=== PATIENT | female | born 1940 | race Caucasian/White ===

== ENCOUNTER 2016-10-19 09:56 | Inpatient (IN) | payer MEDICARE, MEDICAID ==
[2016-10-19] VITALS (12 sets, daily range): BP systolic 62–147; BP diastolic 28–79; PULSE 48–111; RESP 10–18; O2SAT 94–100
[~2016-10-19] VITALS: Ht 152.4 cm; Wt 67.2 kg
[~2016-10-19 09:56] MED LIST: ACET-171 PO; ALBU8.5H2 IH; ANTI1CAP2 PO; ASPI-973 PO; ATOR40TA69 PO; BACL10TA PO; BECL8.7A5 INH; CALC-243 PO; CITA10TA9 PO; CLOP75TA28 PO; CYAN500 SL; DIAZ2TAB2 PO; DOCU-41 PO; FLUT16SP NS; IMI100 PO; IPRA3AMP INH; LEVO100T6 PO; METO25TA99 PO; PRIM50TA PO; TRAZ-115 PO; VARE1TAB22 PO; [UNRECOGNIZED DRUG - CODE] PO
--- NOTE | 2016-10-19 10:01 | ED.REPORT ---
HPI-Neurologic Deficit Date of Service Oct 19, 2016 ED Provider: Baldomero Marquis DO A 76 year old female with a previous diagnosis of posterior reversible encephalopathy syndrome and Parkinson's disease presents to ED via EMS with altered mental status, last known normal yesterday. Caregiver reports that the patient was unable to answer the door for her this morning, and subsequently called EMS. Son reports increased confusion for the past 4-6 weeks. He states that she loses her train of thought more frequently, and has periodic difficulty with word-finding. Associated symptoms include intermittent and perseveration. Patient keeps repeating "my cat" when asked why she is in the ER. History is limited due to patient's mental status. Nursing Notes Stated Complaint: STROKE SYMPTOMS Nursing Notes Reviewed: Yes Allergies: Coded Allergies: Tetanus Vaccines and Toxoid (Unverified Allergy, Unknown, 10/29/15) Updated from uncoded allergies (tetanus horse serum) codeine (Verified Adverse Reaction, Unknown, vomiting, 10/19/16) Scheduled Acetaminophen (Acetaminophen) 500 Mg Tablet 500 MG PO Q6HR Aspirin (Aspirin) 81 Mg Tablet 81 MG PO DAILY Atorvastatin Calcium (Atorvastatin Calcium) 40 Mg Tablet 80 MG PO HS Beclomethasone Dipropionate (Qvar) 8.7 Gm Aer.w.adap 2 PUFF INH BID Calcium Carbonate/Vitamin D3 (Calcium 600 + Vit D Tablet) 1 Each Tablet 1 EACH PO DAILY Citalopram (Citalopram) 10 Mg Tablet 10 MG PO DAILY Citalopram (Citalopram) 20 Mg Tablet 20 MG PO DAILY Clopidogrel (Clopidogrel) 75 Mg Tablet 75 MG PO DAILY Cyanocobalamin (Vitamin B12) 500 Mcg Tablet 1,000 MCG SL DAILY Levetiracetam (Keppra) 500 Mg Tablet 500 MG PO BID Levothyroxine (Levothyroxine) 100 Mcg Tablet 100 MCG PO DAILY Lisinopril (Lisinopril) 5 Mg Tablet 5 MG PO DAILY Metoprolol Succinate ER (Metoprolol Succinate ER) 25 Mg Tab.er.24h 25 MG PO DAILY Polyethylene Glycol 3350 (Miralax) 17 Gm Powd.pack 8.5 GM PO DAILY Primidone (Primidone) 50 Mg Tablet 50 MG PO HS Theophylline Anhydrous ER (Theophylline Anhydrous ER) 300 Mg Tab.er.12h 300 MG PO BID Topiramate (Topamax) 100 Mg Tablet 200 MG PO BID Trazodone (Trazodone) 50 Mg Tablet 100 MG PO HS Scheduled PRN Albuterol HFA (Proair HFA) 8.5 Gm Hfa.aer.ad 2 PUFFS IH Q4-6H PRN PRN For Wheezing Baclofen (Baclofen) 10 Mg Tablet 10 MG PO TID PRN PRN spa Diazepam (Diazepam) 2 Mg Tablet 2 MG PO BID PRN PRN For Spasm Ipratropium/Albuterol Sulfate (Iprat-Albut 0.5-3(2.5) mg/3 mL Inhalant Soln) 3 Ml Ampul.neb 3 ML INH QID PRN PRN For Shortness of Breath Ondansetron (Ondansetron) 8 Mg Tablet 8 MG PO TID PRN PRN For Nausea Varenicline Tartrate (Chantix) 1 Mg Tablet 1 MG PO BID PRN PRN smoking cessation General Time Seen by Provider: 10:01 Transferred From: skilled nursing Chief Complaint Mental status change Hx Obtained From: EMS Unable to Obtain Hx: Patient condition Arrived By: Ambulance Sudden in Onset?: No Onset Occurred: Just prior to arrival Symptom Duration: 1 - 4 hours Recent Healthcare: Recent doctor visit Risk Factors Risk Notes: Unable to perform NIH Stroke Scale due to extreme patient uncooperation. Past Medical History Past Medical History Notes: Review of past records showed that in October, pt had a neuro consult for posterior reversible encephalopathy which occured in 04/2015 described as severe headache, disorientation, and amnesia. Past Medical History Macular degeneration COPD Posterior reversible encephalopathy syndrome Macular Degeneration Reports: Asthma, Hypertension Reports: Depression, Migraines Past Surgical History Reports: Cholecystectomy Family History non-contributory Smoking History Former Smoker Social History Alcohol Use: 1-3 per day Drug Use: Denies drug use Ambulatory Status Independent Review of Systems Unable to Obtain ROS Mental status Physical Exam Physical Exam Notes: Initial Vital Signs Vital Signs (First) Date Time Temp Pulse Resp B/P Pulse Ox O2 Delivery O2 Flow Rate FiO2 10/19/16 10:05 36.2 81 16 105/68 98 10/19/16 10:49 Nasal Cannula 2 Initial VS: Reviewed General/Constitutional: Awake Alertness: Positive: Confused Head / Eyes: Atraumatic, Normocephalic, PERRL, EOMI (Extra occular movements grossly intact.) Tearful. Respiratory / Chest: Atraumatic, Breath sounds NL, Breath sounds = bilat, No respiratory distress, No rales, No rhonchi, No wheezing Cardiovascular: Heart rate NL, Regular rhythm, Heart sounds NL, No gallop, No murmurs, No rubs Neurologic: No sensory deficits (Full sensation in all extremities and face.) Mental Status: Positive: Confused, Disoriented to place, Disoriented to time Perseveration. Continues to say "my cat, my cat." Symmetric smile. Equal nuclear instructor strength. Equal foot plantar strength. Unable to perform NIH Stroke Scale due to profound patient uncooperation. ENT: Atraumatic, Airway patent, Mucous membranes moist Neck: Atraumatic, Full range of motion Abdomen: Atraumatic, Soft, Non-tender, No guarding, No rebound Back: Atraumatic, Full range of motion, No CVA tenderness Upper Extremity / MS: Atraumatic, Full range of motion, Neurologic intact Lower Extremity / Pelvis / MS: Atraumatic, Full range of motion, Neurologic intact Skin: Atraumatic, Color NL, No rash, Warm, Dry Interpretation & Diagnostics Lab Results Interpretation Result Diagram: 10/19/16 1012 10/19/16 1012 Test 10/19/16 10:12 10/19/16 10:20 10/19/16 11:45 White Blood Count 10.2th/mm3 (3.8-10.1) Red Blood Count 3.96mil/mm3 (3.90-5.20) Hemoglobin 12.0g/dL (12.0-15.6) Hematocrit 38.7% (35.0-46.0) Mean Corpuscular Volume 97.7fL (81-100) Mean Corpuscular Hemoglobin 30.3pg (27.0-35.0) Mean Corpuscular Hemoglobin Concent 31.0% (32.0-37.0) Red Cell Distribution Width 14.8% (12.3-15.4) Platelet Count 321bil/L (150-400) Neutrophils (%) (Auto) 59.3% (40-74) Lymphocytes (%) (Auto) 25.9% (14-46) Monocytes (%) (Auto) 11.5% (4-12) Eosinophils (%) (Auto) 2.8% (0-5) Basophils (%) (Auto) 0.2% (0-3) Prothrombin Time 10.7sec (8.1-12.5) Prothromb Time International Ratio 1.00ratio Activated Partial Thromboplast Time 25.2sec (22.8-33.0) Sodium Level 138mEq/L (134-144) Potassium Level 4.0mEq/L (3.5-5.2) Chloride Level 100mEq/L (97-108) Carbon Dioxide Level 22mmol/L (18-29) Blood Urea Nitrogen 29mg/dL (8-27) Creatinine 2.60mg/dL (0.57-1.00) Estimat Glomerular Filtration Rate 26mL/min (>59) Glucose Level 109mg/dL (60-99) Calcium Level 9.8mg/dL (8.5-10.1) Total Bilirubin 0.2mg/dL (0.0-1.2) Aspartate Amino Transf (AST/SGOT) 12U/L (0-50) Alanine Aminotransferase (ALT/SGPT) 12U/L (0-32) Alkaline Phosphatase 104U/L (25-165) Troponin T 0.010ug/L (0.0-0.011) Total Protein 6.7g/dL (6.4-8.4) Albumin 4.4g/dL (3.4-5.0) Urine Color Straw (YELLOW) Urine Appearance Hazy (CLEAR,HAZY) Urine pH 5.5 (5.0-8.0) Urine Specific [place] 1.010 (1.003-1.035) Urine Protein Negativemg/dL (NEG,TRACE) Urine Glucose (UA) Negativemg/dL (NEGATIVE) Urine Ketones Negativemg/dL (NEGATIVE) Urine Occult Blood Trace (NEGATIVE) Urine Nitrite Negative (NEGATIVE) Urine Bilirubin Negative (NEGATIVE) Urine Urobilinogen Normalmg/dL (NORMAL) Urine Leukocyte Esterase Trace (NEGATIVE) Urine RBC 0-2/hpf (0-2) Urine WBC 0-5/hpf (0-5) Urine Epithelial Cells Occasional/hpf (NONE-MOD) Urine Crystals Oxalic acid crystals (NONE Urine Bacteria Few/hpf (NONE-FEW) Urine Hyaline Casts Occasional/lpf (NONE) Urine Granular Casts None seen (NONE SEEN) Urine Waxy Casts None seen (NONE SEEN) Urine Red Blood Cell Casts None seen (NONE SEEN) Urine White Blood Cell Casts None seen (NONE SEEN) Urine Mucus None seen (None Seen) Urine Trichomonas None seen (NONE SEEN) Urine Yeast None (NONE SEEN) Urinalysis Comment None Urine Culture Reflexed Indicated Urine Opiates Screen Negative Urine Methadone Screen Negative Urine Barbiturates Screen Positive Urine Amphetamines Screen Negative Urine Benzodiazepines Screen Positive Urine Cocaine Metabolite Screen Negative Urine Cannabinoids Screen Negative Lactic Acid Level 0.7mmol/L (0.4-2.0) Ammonia 25ug/dL (18-53) Procalcitonin 0.11ng/mL (0.00-0.08) Thyroid Stimulating Hormone (TSH) 3.050uIU/mL (0.450-4.500) ECG Interpretation ECG Interpretation: Normal, no change. Time: 10:53 Interpreted by: ED physician X-Ray Chest Interpretation Chest Xray Interpretation: IMPRESSION: Normal low volume exam Dictated by: Jack Burrows M.D. on 10/19/2016 at 10:43 Approved by: Jack Burrows M.D. on 10/19/2016 at 10:44 View: Portable, [address] Head Interpretation IMPRESSION: 1. No acute intracranial process. 2. Mild atrophy and chronic microvascular ischemic changes. Dictated by: Aruna Wynn M.D. on 10/19/2016 at 11:12 Approved by: Aruna Wynn M.D. on 10/19/2016 at 11:13 Study: Head CT no contrast Interpretation / Wet Read by: Interpret - Radiologist Re-Eval/Medical Decision Med Decision/Clinical Course This patient presents with altered level of consciousness, she has no focal signs of stroke, she is disoriented and difficult to get to follow commands however she has grossly symmetric cranial nerves, motor, sensory function on exam. NIH stroke scale could not be performed due to the patient's condition. She rapidly developed hypotension bradycardia and decreased level of consciousness in the ER of unclear etiology, she had minimal elevation of her PCO2 which does not seem to explain her symptoms. She was given 2 doses of 0.4 mg of IV naloxone due to the overall change in presentation without significant cognitive improvement. She was then given 5 mg IV glucagon which promptly improve her heart rate and blood pressure in mental status though she did not seem to be at full normal baseline cognitively at that point. Overall infectious etiology seems unlikely however urine and blood cultures as well as broad-spectrum antibiotics, meropenem and Zyvox are initiated. After receiving IV glucagon 5 mg initially she had a prolonged approximately greater than one hour episode of normotension, improved mental status and normal heart rate in the 90s, she began have a slow downtrending once again, 2 mg IV glucagon was given at this time as she had not yet reached for bradycardia or hypotension, subsequently this was unable to reverse her symptoms and she then developed recurrent hypotension with bradycardia, this was treated with 5 mg IV glucagon, subsequently a Norepinephrine drip was initiated. So IV atropine was given at that time for bradycardia after initiation of norepinephrine. Of note on initial presentation when she was more awake and alert there did not seem to be focal signs of trauma she had no focal abdominal pain on exam or any other signs of physical injury. Differential diagnosis at this point is broad I question whether this could be beta parth toxicity, atypical presentation of cerebral ischemia versus polypharmacy versus CO2 retention versus sepsis versus other pathology. She will be admitted to CCU for ongoing monitoring. Source of Hx: Old records Re-Evaluation/Progress #1: Time of Eval: 10:57 Re-Evaluation/Progress Note: Patient is now accompanied by her son. Rechecked patient, explained plan to patient and son. Re-Evaluation/Progress #2: Time of Eval: 11:28 Re-Evaluation/Progress Note: Rechecked and rexamined patient. Pupils pin point and non reactive. Blood pressure is dropping. Re-Evaluation/Progress #3: Time of Eval: 11:37 Re-Evaluation/Progress Note: Rechecked patient. Explained Dr. Bond's agreement to consult on patient condition. Re-Evaluation/Progress #4: Time of Eval: 11:46 Re-Evaluation/Progress Note: Persistent low blood pressure. Re-Evaluation/Progress #5: Time of Eval: 12:17 Re-Evaluation/Progress Note: Patient blood pressure and heart rate improved immediatley with injection of glucagon. Re-Evaluation/Progress #6: Time of Eval: 13:37 Re-Evaluation/Progress Note: Rechecked patient. Heart rate dropped into the 60's. Blood Pressue has gone down. Patient has become more somnolent. Re-Evaluation/Progress #7: Time of Eval: 14:04 Re-Evaluation/Progress Note: Rechecked patient. Patient remains somulent. Heart rate is in the 60's. She is hypotensive. Consultation #1: Referral / Consult Name: Blaine Butler MD Consulted With: Nephrology Call Returned at: 11:33 Stove Cleaner: Agrees with eval, Agrees with plan Note: Dr. Bond will consult on the patient. Consultation #2: Referral / Consult Name: Rad Garcia MD Consulted With: Hospitalist Call Returned at: 12:11 Stove Cleaner: Agrees with eval, Agrees with plan, Accepts admit Counseled Regarding: Diagnosis, Lab results, Need for admission Discharge & Departure Impression: Primary Impression: Altered mental status Altered mental status type: unspecified Qualified Code: R41.82 - Altered mental status, unspecified Additional Impressions: Hypotension Hypotension type: unspecified hypotension type Qualified Code: I95.9 - Hypotension, unspecified Acute kidney injury Disposition: ADMITTED TO HOSPITAL Discharge Condition All VS Reviewed: Yes Condition: Stable Referrals: Callum Conn MD (PCP) Crit Care Except Billable Proc Time Spent: 105-134 minutes Services Performed: Patient management by me, Time spent at bedside, Reviewing test results, Reviewing imaging, Discussing patient care, Documentation in record, Time with fam/surrogate Critical Care Notes: See MDM Scribe Attestation Portions of this note were transcribed by Alber Shanks and Paco Andrade. I, Dr. Maruqis personally performed the history, physical exam and medical decision-making; I reviewed and confirmed the accuracy of the information in the transcribed note. Signed by: Earnest Vega, 10/19/2016 and 1339. Signed by: Earnest Ricci, 10/19/2016 and 1339. copies to: Callum Conn MD, Timyael Rojo Oct 19, 2016 10:01 Alber Shanks Oct 19, 2016 10:07 PACO BOLAND Oct 19, 2016 11:54
[2016-10-19] MEDS ORDERED: 0.9% Sodium Chloride 1,000 ML IV ONE ×3 (10:09→11:45)
[2016-10-19 10:26] LABS: BASOPHILS % (AUTO) 0.2 % (0-3); EOSINOPHILS % (AUTO) 2.8 % (0-5); MONOCYTES % (AUTO) 11.5 % (4-12); Mean Corpuscular Hemoglobin 30.3 pg (27.0-35.0); Mean Corpuscular Volume 97.7 fL (81-100); NEUTROPHILS % (AUTO) 59.3 % (40-74); Platelet Count 321 bil/L (150-400)
[2016-10-19 10:31] LABS: TROPONIN T 0.01 ug/L (0.0-0.011)
[2016-10-19] MEDS ORDERED: TOPI100T32 PO (10:39)
[2016-10-19] MEDS ORDERED: LISI-571 PO (10:39)
[2016-10-19] MEDS ORDERED: POLY17PO6 PO (10:39)
[2016-10-19] MEDS ORDERED: KEP500TA PO (10:39)
[2016-10-19] MEDS ORDERED: ONDA-54 PO (10:39)
[2016-10-19] MEDS ORDERED: CITA20TA11 PO (10:39)
--- NOTE | 2016-10-19 10:46 | DRSVH ---
PROCEDURE: X-RAY CHEST ONE VIEW, PORTABLE ([id number]) INDICATIONS: ALOC TECHNIQUE: One view of the chest was acquired. COMPARISON: 08/20/2016 FINDINGS: Surgical changes and devices: Surgical clips right upper quadrant.. Lungs and pleura: No pleural effusions or pneumothorax. Lungs are clear. Mediastinum: Mediastinal contours appear normal. Heart size is normal. Aortic calcifications. Bones and chest wall: No suspicious bony lesions. Degenerative a.c. joint disease bilaterally. Overl janice soft tissues appear unremarkable. IMPRESSION: Normal low volume exam Dictated by: Jack Burrows M.D. on 10/19/2016 at 10:43 Approved by: Jack Burrows M.D. on 10/19/2016 at 10:44
--- NOTE | 2016-10-19 11:15 | DRSVH ---
PROCEDURE: CT BRAIN WITHOUT CONTRAST ([id number]) INDICATIONS: ALOC, repetitive, expressive aphasia TECHNIQUE: Noncontrast 4.5 mm thick angled axial sections acquired from the foramen magnum to the vertex, with c oronal reformats. COMPARISON: [facility], CT, CT BRAIN WO CON, 05/01/2015, 7:53. FINDINGS: Image quality: Excellent. CSF spaces: Basal cisterns are patent. No extra-axial fluid collections. The ventricles are symmet jv in size and shape. Brain: No intracranial bleeds or masses. There is cerebral volume loss for age, with resultant vent ricular and sulcal prominence. There are periventricular and deep white matter chronic small vessel ischemic changes. There is intracranial internal carotid artery atherosclerosis. Skull and face: Calvarium and visualized facial bones appear intact, without suspicious lesions. Sinuses: Visualized sinuses and mastoids are clear. IMPRESSION: 1. No acute intracranial process. 2. Mild atrophy and chronic microvascular ischemic changes. Dictated by: Aruna Wynn M.D. on 10/19/2016 at 11:12 Approved by: Aruna Wynn M.D. on 10/19/2016 at 11:13
--- NOTE | 2016-10-19 11:19 | ABG ---
DateTimeAnalyzed 11:14:00 -_ pH ____7.203 - 7.350 7.450 pCO2 ___50.9__ -mmHg 35.0 45.0 pO2 108 -mmHg 69.0 116 HCO3- ___19.3__ -mmol/L 22.0 26.0 ABE ___-8.3__ -mmol/L -2.0 2.0 tHb ___11.1__ -g/dL O2Hb ___96.2__ -% COHb ____0.4__ -% MetHb ____1.0__ -% sO2 ___97.6__ -% FIO2 ___31.0__ -% Drawn By jj - Date/Time Notified____ 11:19:00 -_ Liter_Flow ____3.0__ -L/min Oxygen Device 1 __CANNULA - Notified By jj - Notified Whom dr okelley - B 755 -mmHg tO2 ___15.1__ -Vol% Rad test _Positive -
[2016-10-19 11:21] LABS: APPEARANCE,URINE HAZY (CLEAR,HAZY); COLOR,URINE STRAW (YELLOW); OCCULT BLOOD,URINE TRACE (NEGATIVE); PH,URINE 5.5 (5.0-8.0); UROBILINOGEN,URINE NORMAL (NORMAL)
[2016-10-19] MEDS ORDERED: Naloxone 0.4 mg/mL 10 mL Inj IVPUSH PRN (11:30)
[2016-10-19] MEDS ORDERED: Glucagon 1 mg/mL Inj IV ONE ×4 (11:30→13:40)
--- NOTE | 2016-10-19 11:53 | NUR ---
Orders received for swallow evaluation. Discussed with RN. Patient is unable to tolerate swallowing evaluation currently. RN to call if status changes. NIT[employer]ANT OPERATOR to evaluate when appropriate.
[2016-10-19] MEDS: 0.9% Sodium Chloride 1,000 ML IV SCH ×3 (11:56→20:28)
[2016-10-19] MEDS ORDERED: Sodium Chloride LOK Flush 10 mL Syringe IVFLUSH PRN ×2 (12:00)
[2016-10-19] MEDS ORDERED: Meropenem Inj 1,000 MG in IV Premix 1 EACH IV ONE (12:15)
[2016-10-19] MEDS ORDERED: Linezolid Inj 600 MG in IV Premix 1 EACH IV ONE (12:15)
[2016-10-19] MEDS ORDERED: Ondansetron 2 mg/mL 2 mL Inj IVPUSH PRN ×3 (12:20→13:40)
[2016-10-19] MEDS ORDERED: 0.9% Sodium Chloride 1,000 ML IV SCH (12:22)
[2016-10-19] MEDS ORDERED: Alum-Mag Hydrox-Simeth 30 mL Suspension PO PRN ×2 (12:25→13:40)
[2016-10-19] MEDS ORDERED: Polyethylene Glycol (PEG) 17 Gm Powder PO PRN (13:40)
[2016-10-19] MEDS ORDERED: DEXTROSE IV SCH ×2 (13:50)
[2016-10-19] MEDS ORDERED: GLUCAGON IV SCH ×2 (13:50)
[2016-10-19] MEDS: Norepineph 8,000 mCg/250 mL NS 8,000 MCG in IV Premix 1 EACH IV SCH ×2 (14:14→21:00)
[2016-10-19] MEDS ORDERED: Atropine 1 mg/10 mL (Code) Syringe IVPUSH PRN (14:25)
--- NOTE | 2016-10-19 14:45 | NUR ---
Admit/ LOC/BP Pt arrived on floor from ER at 1445. On norepi gtt at 0.55 with MAP in the low 60s. Pt awake to sternal rub but does not hold attention. Able to weakly squeeze hands. Repeating words a lot but nods and shakes head to yes and no questions. IV therapy at bedside to place PICC. Carlin score 11, protocol sent. O2 at 99% on 5L
[2016-10-19 14:48] LABS: Creatine Kinase 73 U/L (21-215)
--- NOTE | 2016-10-19 16:21 | DRSVH ---
PROCEDURE: X-RAY PICC LINE PLACEMENT BY NURSE ([id number]) INDICATIONS: hypotension COMPARISON: None. FINDINGS: PICC was placed by the intravenous therapy team from the left side. Fluoroscopic spot madeline m demonstrates tip of PICC overlies the distal SVC. IMPRESSION: Tip of PICC overlies the distal SVC. Dictated by: Aruna Wynn M.D. on 10/19/2016 at 16:19 Approved by: Aruna Wynn M.D. on 10/19/2016 at 16:19
--- NOTE | 2016-10-19 16:33 | PCM.HPMED ---
Subjective Date of Service Oct 19, 2016 Primary Provider: Admitting Physician: Rad Garcia MD Primary Care Physician: Callum Conn MD Attending Physician: Rad Gacria MD Chief Complaint: Encephalopathy and hypotension. History of Present Illness: Mrs. Crow Is a 76-year-old lady with past medical history significant for 2 prior episodes of reversible encephalopathy with the past year, COPD, depression , polypharmacy, one-year history of seizure disorder and 2 year story of resting tremor and head noemi declining ambulatory ability, hypothyroid, hypertension, and previous PA without PCI, who presents to the [facility] emergency Department via EMS after being found by caregiver in a confused state asking about her cat, with previous normal cognition one day prior. Upon arrival patient was following commands and continue her perseverating about her cat and shortly thereafter became obtunded. Patient's son Félix helped provide history along with previous records to complete past medical history. Patient' s son Félix reports 4-6 weeks of increased perseveration, mild decline in memory and train of thought and word finding. Félix notes recent medication changes but cannot identify which changes were made. 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 After arrival to the ED the patient rapidly developed hypotension bradycardia and decreased level of consciousness in the ER of unclear etiology, she had minimal elevation of her PCO2. She was given 2 doses of 0.4 mg of IV naloxone due to the overall change in presentation without significant cognitive improvement. She was then given 5 mg IV glucagon which promptly improve her heart rate and blood pressure in mental status though she did not seem to be at full normal baseline cognitively at that point. Overall infectious etiology seems unlikely however urine and blood cultures as well as broad-spectrum antibiotics, meropenem and Zyvox are initiated. After receiving IV glucagon 5 mg initially she had a prolonged approximately greater than one hour episode of normotension, improved mental status and normal heart rate in the 90s, she began have a slow downtrending once again, 2 mg IV glucagon was given at this time as she had not yet reached for bradycardia or hypotension, subsequently this was unable to reverse her symptoms and she then developed recurrent hypotension with bradycardia, this was treated with 5 mg IV glucagon, subsequently a Norepinephrine drip was initiated. So IV atropine was given at that time for bradycardia after initiation of norepinephrine. Allergies Coded Allergies: Tetanus Vaccines and Toxoid (Unverified Allergy, Unknown, 10/29/15) Updated from uncoded allergies (tetanus horse serum) codeine (Verified Adverse Reaction, Unknown, vomiting, 10/19/16) Home Medications Not obtainable PMH One-year seizure disorders. One-year of 2 prior events of reversible encephalopathy. 2 years of EPS. Depression. Hypothyroid. Hypertension. COPD. ACS - PA without PCI. Macular degeneration. Migraines. Surgical History Cholecystectomy. Family History Not obtainable, due to mental status Social History Hx Alcohol Use: Yes Alcoholic Drinks Per Day: 1-3 drinks per day, unspecified type. Hx Substance Use: No Hx Tobacco Use: Yes (1ppd for all her life) Smoking Status: Former Smoker Exam Vital Signs Vital Sign - Last Date Time Temp Pulse Resp B/P Pulse Ox O2 Delivery O2 Flow Rate FiO2 10/19/16 14:33 35.9 99 12 131/42 100 Nasal Cannula 2 Exam General: Unresponsive and obtunded and unarousable. HEENT: Normocephalic, atraumatic. External ears without defect. Pupils equal, round, and reactive to light and pinpoint. Positive corneal reflex bilaterally. Anicteric sclerae, moist conjunctivae. Bond macroglossia present , cannot visualize tonsils, with dry mucosa, active snoring present. Neck: Supple with full range of motion. No jugular venous distension. Could not appreciate bruits due to active snoring. No lymphadenopathy or thyromegaly. Cardiovascular: Bradycardic rate and regular rhythm murmurs are not appreciated as well due to loud glottic noises. Pulmonary: Difficult to auscultation due to loud glottic noises. Hypoactive respiratory effort and no use of accessory muscles. Abdomen: Bowel tones present. Soft, obese, nontender, nondistended. No hepatosplenomegaly or masses appreciated. Extremities: No clubbing, cyanosis, edema, or lymphadenopathy appreciated. Ovaries cool to touch upper and lower bilaterally with mild patches of ecchymosis lower extremities. Pulses posterior tibialis 2+ in the right and 1+ on the left lower extremity. Skin: Skin drying cool upper and lower extremities. Normal turgor, and texture ; no rash, ulcers, or subcutaneous nodules appreciated. Mild patches of ecchymosis lower extremity. Neurological: Unresponsive and obtunded and unarousable. No Babinski reflex present. According to notes patient is dependent upon walker for the last 2 years. Psychiatric: Unresponsive and obtunded and unarousable. Lab and Diagnostics Result Diagram: 10/19/16 1012 10/19/16 1012 Assessment & Plan Mrs. Crow Is a 76-year-old lady with past medical history significant for 2 prior episodes of reversible encephalopathy with the past year, COPD, depression , polypharmacy, one-year history of seizure disorder and 2 year story of resting tremor and head noemi declining ambulatory ability, hypothyroid, hypertension, and previous PA without PCI, who presents to the [facility] emergency Department via EMS after being found by caregiver in a confused state asking about her cat, with previous normal cognition one day prior. The patient rapidly developed hypotension bradycardia and decreased level of consciousness in the ER of unclear etiology; minimal elevation of PCO2, 2 doses of 0.4 mg of IV naloxone; 5 mg IV glucagon which promptly improve her heart rate and blood pressure in mental status though she did not seem to be at full normal baseline cognitively at that point. Urine and blood cultures obtained, meropenem , linezolid initiated. After receiving IV glucagon 5 mg initially she had a prolonged approximately greater than one hour episode of normotension, improved mental status and normal heart rate in the 90s, she began have a slow downtrending once again, 2 mg IV glucagon was given at this time as she had not yet reached for bradycardia or hypotension, subsequently this was unable to reverse her symptoms and she then developed recurrent hypotension with bradycardia, this was treated with 5 mg IV glucagon, subsequently a Norepinephrine drip was initiated. So IV atropine was given at that time for bradycardia after initiation of norepinephrine. 1. Encephalopathy, present on admission. Improved. - Differential diagnosis includes polypharmacy, beta parth overdose, seizure disorder, stroke, infectious source, hypothyroid, COPD exacerbation, uremia. - IV glucagon 5 mg given 3 times with resolution only after the first administration. - TSH within normal limits (3.050). - UA negative. - Toxicology showed positive barbiturates and benzodiazepines, investigate current home medications. - CT head wo as above. No acute abnormalities. - MRI head tomorrow. 2. Acute shock, present on admission. Improved. - Differential includes sepsis versus cardiogenic versus neurogenic. - Currently placed on norepinephrine. - Currently on a norepinephrine drip. - 3 L normal saline given wide open with current rate of 300ml per hour. - Meropenem and linezolid initiated in the ED. - Blood cultures pending 2. - Chest x-ray as above. Stable nodule. 3. Acute bradycardia, present on admission. Improved. - Atropine administered. 4. Acute respiratory acidosis, present on admission. Active and improving. - ABG as above. PH 7.203, PCO2 50.9 - Normal respirations 12, tolerating nasal cannula 99% saturations. 5. Acute kidney injury, present admission. Active. - Baseline creatinine 0.6, currently 2.60. BUN 29. - Continue IV fluids. Chronic Conditions: Chronic Hypertension Chronic Hypothyroidism Depression Migraines Seizure disorder Acetaminophen for mild pain when necessary. Bowel regimen Senna and MiraLAX scheduled and PRN. Zofran when necessary for nausea and vomiting. SubQ heparin held for now. SCDs in place. High-risk medications: ICU: Vent settings: none. ABG: as above. I/Os: Lines: Left and right antecubital peripheral IV (10/19). Left PICC (10/19). Drips: NE Disposition: Likely here for > 2 midnights. Dependent upon mental status. Will be discharged to home or SNF undetermined at this time. Acute or chronic? Pain Evaluation: Adequate Pain Control Resuscitation Status: DNR/DNI:Do Not Resuscitate/Intubate Time spent 70 minutes Attending Statement Patient seen and examined with house staff. Agree with all attached documentation. RAQUEL HAYWARD DO Oct 19, 2016 15:44 Rad Garcia MD Oct 27, 2016 07:29
[2016-10-19] MEDS ORDERED: ATOR80TA77 PO (16:34)
[2016-10-19] MEDS ORDERED: LEVE500T3 PO (16:34)
[2016-10-19] MEDS ORDERED: MULT1TAB11 PO (16:34)
--- NOTE | 2016-10-19 17:42 | PCM.CHPMED ---
Subjective Date of Service: Oct 19, 2016 Primary Physician: Admitting Physician: Rad Garcia MD Primary Care Physician: Callum Conn MD Attending Physician: Rad Garcia MD Chief Complaint: Chief Complaint: Altered mental status History of Present Illness: This is a 76-year-old lady with multiple past medical history including seizure disorder, COPD, previous [place], hypothyroidism, hypertension, migraines, depression , macular degeneration who presented to the hospital due to altered mental status. Patient was recently admitted in July 2016 due to acute encephalopathy secondary to posterior reversible encephalopathy syndrome. Her son is at the bedside reported that she lives alone at her apartment. She has caregiver who comes 3-4 times a week to check on her. This morning, patient was found to be confused and obtunded. She then was brought to the ED by EMS. Upon arrival, she was found to be hypotensive and bradycardia. She received IV Narcan and IV glucagon. 2L NS IV bolus was given. Subsequently, her BP and HR have improved. During my visit, her BP was in 110s systolic with HR of 90. Her son does not know if she overdosed herself unintentionally. He does not know whether she took any NSAIDs. Her mentation has declined over the past 6 weeks. Her initial w/u showed Na 138, K 4.0, Cl 100 CO2 22, BUN 29/Cr 2.6. Her baseline serum cr was 0.6. UA showed oxalic acid crystal. Dela Cruz catheter was placed in ER with good UOP. Her last visit at urgent care was on 10/13 due to skin lesion from cat scratch. The wound was cleaned and antibiotics ointment was applied. Echo in Jul 2016: The left ventricle is normal in size. Left ventricular systolic function is normal without focal wall motion abnormalities. The ejection fraction is estimated to be 60-65%. Prior regional wall motion abnormalities have resolved. The right ventricle is normal in size and function. Pulmonary artery pressures cannot be estimated because of the lack of a measurable TR jet velocity. Both atria are normal in size. There is no significant valvular heart disease. The aortic root is normal size. There is no obvious cardiac source of embolus noted on this transthoracic echocardiogram. Follow-up with a LUIS is suggested if cardiac source is still suspected. PMH Posterior reversible encephalopathy syndrome x2, last episode in Jul 2016. COPD HTN Migraine headache Depression Macular degeneration Tobacco abuse Surgical History Cholecystectomy Family History Patient is unable to recall family history of HTN, CVD, Cancer Social History Hx Alcohol Use: Yes Hx Substance Use: No Hx Tobacco Use: Yes (1ppd x 50 PY) Smoking Status: Former Smoker Review of Systems: [facility] Allergies: Coded Allergies: Tetanus Vaccines and Toxoid (Unverified Allergy, Unknown, 10/29/15) Updated from uncoded allergies (tetanus horse serum) codeine (Verified Adverse Reaction, Unknown, vomiting, 10/19/16) Social History Hx Alcohol Use: YesAlcoholic Drinks Per Day: 1-3 drinks per day, unspecified type. Hx Substance Use: NoHx Tobacco Use: Yes (1ppd for all her life) Smoking Status: Former Smoker Exam Vital Signs Vital Sign - Last Date Time Temp Pulse Resp B/P Pulse Ox O2 Delivery O2 Flow Rate FiO2 10/19/16 14:45 36.4 68 12 147/51 99 Nasal Cannula 3.00 General: Mild Distress, Other (obtunded, responsive to painful stimuli) Head: Normal Eyes: PERRLA, EOMI, Scleral Anicteric Mouth: Lips, Mucous Membr Moist/[place] Neck: No Thyromegaly Chest & Lungs: Chest Wall Normal, Clear to auscultation & percussion, Diminished breath sounds Cardiovascular: Regular Rate/Rhythm, Normal S1, Normal S2, Murmur (systolic ) Abdomen: Non-tender, Non-distended, No hepatosplenomegaly Genitourinary: Dela Cruz Present Extremities: No cyanosis/clubbing/edma bilat Lab and Diagnostics Result Diagram: 10/19/16 1012 10/19/16 1012 Assessment & Plan Assessment 1. JACKIE - baseline serum creatinine 0.6 - initial serum creatinine 2.6. - She takes lisinopril. Per record, med was started in Jul 2016. - DDx: Prerenal- decrease renal blood flow during hypotensive and bradycardic episodes. JACKIE after lisinopril initiated in Jul 2016, need to r/o RADHA. Renal- ischemic ATN from prolonger hypotension vs toxic ATN. AIN and GN - less likely Postrenal - good urine output after dela cruz cath placed, will order renal US. 2. Mixed respiratory acidosis and AG metabolic acidosis - will check ETOH level, salicylate, ethylene glycol (oxalic acid crystal in urine, AMS). - normal lactate level. 3. Acute encephalopathy. 4. Hypotension - septic w/u done. 5. Bradycardia, suspected beta-parth overdose. s/p IV glucagon. 6. h/o PRES x 2. 7. Seizure disorder. 8. h/o COPD, tobacco abuse. Plan: continue supportive treatment, no urgent HD indicated. Continue NS 150 ml/hr. Continue vasopressors to keep MAP > 65 mmHg. Renal US with doppler. check ETOH level, salicylate, ethylene glycol. Avoid nephrotoxin and adjust meds per GFR. Thank you for allowing me to participate in the care of your patient. Problems: Pain Evaluation: Adequate Pain Control Resuscitation Status: DNR/DNI:Do Not Resuscitate/Intubate Blaine Butler MD Oct 19, 2016 17:39
--- NOTE | 2016-10-19 18:17 | DRSVH ---
[facility] [address] [place] [address] Echocardiogram Report Name: TERI ORTIZ LStudy Date : 10/19/2016 Height: 60 in Hospital Exam Location: [facility] Weight: 163 lb Gender: Female BSA: 1.7 m2 : 1940 Age: 76 yrs BP: 140/74 mmHg Reason For Study: Hypotension Ordering Physician: Performed By: Milli Moore Referring Physician: Heath Hernandez Interpretation Summary The left ventricle is normal in size, wall thickness, and systolic function without any focal wall motion abnormalities. The ejection fraction is estimated to be 70-75%. Assessment of diastolic parameters indicates normal left ventricular diastolic function and normal filling pressures. The right ventricle is normal in size, thickness and function. The right ventricular systolic pressure is estimated at 29 mmHg assuming a right atrial pressure of 3 mm Hg. There is mild aortic stenosis. The peak aortic velocity is 2.8 m/sec. The calculated aortic valve area is 1.6 cm2. No other echocardiographic abnormalities seen. Compared to the prior echo report on 08/16/2016, there is no significant change. Procedure: A two-dimensional transthoracic echocardiogram with color flow and Doppler was performed. The study quality was technically good. Comparison is made with the echocardiogram of 08-16-16. The patient was in normal sinus rhythm during the exam. Left Ventricle: The left ventricle is normal in size, wall thickness, and systolic function without any focal wall motion abnormalities. The ejection fraction is estimated to be 70-75%. There are no focal wall motion abnormalities. Assessment of diastolic parameters indicates normal left ventricular diastolic function and normal filling pressures. Right Ventricle: The right ventricle is normal in size, thickness and function. Atria: The left atrium is mildly dilated. Right atrial size is normal. The interatrial septum is intact with no evidence for an atrial septal defect. Mitral Valve: The mitral valve leaflets appear mildly thickened, but open well. There is mild to moderate mitral annular calcification. There is no mitral regurgitation noted. Aortic Valve: There is mild aortic valve sclerosis. The aortic valve is mildly calcified. The calculated aortic valve area is 1.6 cm2. The aortic valve area indexed to the BSA is 0.95 . The peak aortic velocity is 2.8 m/sec. The peak aortic velocity on the previous exam was 2.6 m/sec. The aortic valve mean gradient is 15 mmHg. There is mild aortic stenosis. No aortic regurgitation is present. Tricuspid Valve: The tricuspid valve is normal in structure and function. There is a trace or physiologic amount of tricuspid regurgitation. The right ventricular systolic pressure is estimated at 29 mmHg assuming a right atrial pressure of 3 mm Hg. Pulmonic Valve: The pulmonic valve is not well visualized. There is no pulmonic valvular regurgitation. Great Vessels: The aortic root is normal size. The dimensions of the ascending aorta are normal. The IVC is of normal diameter and collapses greater than 50% with a sniff. This suggests a low right atrial pressure of 3 mm Hg. Pericardium/ Pleura There is no pericardial effusion. There is no pleural effusion. MMode/2D Measurements & Calculations LVIDd: 4.5 cm LA dimension: 3.3 cm RA long axis LVOT diam LVIDs: 2.8 cm FS: 37.4 % LA A2 area: 29.0 cm RA area AoV Opening IVSd: 0.89 cm LA A4 area: 19.3 cm LVPWd: 0.78 cm LA length (vol): 5.2 cm: 16.5 cm Ao root diam LA vol: 91.3 ml RA vol LA vol index : 46.0 ml Aortic Jxn RA : 26.9 mm/ asc Aorta IVC diam: 2.0 cm RVDd major Diam: 3.2 cm : 6.5 cm LV carmona. diameter/BSA LV sys. diameter/BSA RVD1 (basal) RVD2 (mid) (cm/m^2): 2.6 (cm/m^2): 1.6 : 2.9 cm Doppler Measurements & Calculations Ao V2 max MV E max dieter MV E/A: 1.1 TR max dieter : 275.2 cm/sec : 127.9 cm/sec Med Peak E' Dieter : 253.6 cm/sec Ao max PG MV A max dieter TR max PG : 30.3 mmHg : 111.7 cm/sec E/E' med: 14.0 : 25.7 mmHg Ao mean PG MV P1/2t: 61.3 msec Lat Peak E' Dieter PA V2 max : 14.8 mmHg : 107.5 cm/sec LVOT Max Dieter E/E' lat: 10.7 PA mean PG : 98.2 cm/sec E/e' average: 12.3 ARCHANA(I,D): 1.6 cm MV A dur: 0.16 sec PA Accel Time sev ratio : 0.08 sec MV dec time MV P1/2t max dieter Ao V2 mean LV V1 max PG : 0.21 sec : 174.3 cm/sec Ao V2 VTI: 57.9 cm LV V1 VTI MVA(P1/2t): 3.6 cm2 : 25.9 cm ARCHANA(V,D): 1.3 cm2 PA V2 mean ARCHANA indexed to BSA : 66.6 cm/sec (cm^2/m^2): 0.95 Reading Physician:06:17 PM
[2016-10-19 19:23] LABS: TROPONIN T < 0.010 ug/L (0.0-0.011)
[2016-10-20] VITALS (8 sets, daily range): BP systolic 93–161; BP diastolic 53–74; PULSE 99–121; RESP 13–28; O2SAT 94–100
--- NOTE | 2016-10-20 00:21 | ABG ---
DateTimeAnalyzed 00:14:00 -_ pH ____7.067 - 7.350 7.450 pCO2 ___53.2__ -mmHg 35.0 45.0 pO2 ___96.2__ -mmHg 69.0 116 HCO3- ___14.6__ -mmol/L 22.0 26.0 ABE __-15.5__ -mmol/L -2.0 2.0 tHb ___12.2__ -g/dL O2Hb ___95.1__ -% COHb ____0.3__ -% MetHb ____1.0__ -% sO2 ___96.4__ -% FIO2 ___40.0__ -% Drawn By blf - Date/Time Notified____ 00:20:00 -_ Spontaneous_RR ___40.0__ -b/min Liter_Flow ____6.0__ -L/min Oxygen Device 1 __CANNULA - Notified By blf - Notified Whom ___Dr. Del la Houssaye -_ B 761 -mmHg tO2 ___16.4__ -Vol% Rad test N/A -
[2016-10-20] MEDS ORDERED: Furosemide 10 mg/mL 2 mL Inj IVPUSH ONE (00:30)
--- NOTE | 2016-10-20 01:55 | NUR ---
Hemodynamics, Respiratory, Neuro VS as noted. After repositioning 1900 blood pressure upo to 140s/70s. Weaned Levophed gtt to keep map >65 From 0.55mcg to currently 0.2mcg/kg/min. Sats on 6l/nasal canula high 90s without desats. Cough productive for moderate amounts clear/white secretions increasing through the evening requiring frequent oral suctioning. NS decreased from 200/h to off. 0000 Unable to clear secretions requiring NT suctioning for large amounts clear secretions. Dr Marshall notified. Lasix 20mg iv given with 500ml clear uop in the first hour post. Sats Remain mid 90s on 6l/nc. 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 Repeats responses multiple times.
[2016-10-20] MEDS: Norepineph 8,000 mCg/250 mL NS 8,000 MCG in IV Premix 1 EACH IV SCH (02:47)
--- NOTE | 2016-10-20 05:04 | ABG ---
DateTimeAnalyzed 04:59:00 -_ pH ____7.125 - pCO2 ___50.1__ -mmHg pO2 ___51.5__ -mmHg HCO3- ___15.8__ -mmol/L ABE __-13.1__ -mmol/L tHb ___11.9__ -g/dL O2Hb ___84.2__ -% COHb ____0.6__ -% MetHb ____1.2__ -% sO2 ___85.7__ -% FIO2 ___40.0__ -% Drawn By RN - Date/Time Notified____ 05:04:00 -_ Spontaneous_RR ___26.0__ -b/min Liter_Flow ____6.0__ -L/min Oxygen Device 1 __CANNULA - Notified By BLF - Notified Whom ___DR. DE LA HOUSSAYE -__ B 761 -mmHg tO2 ___14.1__ -Vol% Rad test N/A -
[2016-10-20 05:15] LABS: BASOPHILS % (AUTO) 0.1 % (0-3); EOSINOPHILS % (AUTO) 0.4 % (0-5); MONOCYTES % (AUTO) 11.2 % (4-12); Mean Corpuscular Hemoglobin 30.3 pg (27.0-35.0); NEUTROPHILS % (AUTO) 75.9 % (40-74); Platelet Count 322 bil/L (150-400)
--- NOTE | 2016-10-20 07:41 | PCM.PNMED ---
Subjective Date of Service Oct 20, 2016 Subjective Mrs. Crow Is a 76-year-old lady with past medical history significant for 2 prior episodes of reversible encephalopathy with the past year, COPD, depression , polypharmacy, one-year history of seizure disorder and 2 year story of resting tremor and head noemi declining ambulatory ability, hypothyroid, hypertension, and previous PA without PCI, who presents to the [facility] emergency Department via EMS after being found by caregiver in a confused state asking about her cat, with previous normal cognition one day prior. Upon arrival patient was following commands and continue her perseverating about her cat and shortly thereafter became obtunded. Patient's son Félix helped provide history along with previous records to complete past medical history. Patient' s son Félix reports 4-6 weeks of increased perseveration, mild decline in memory and train of thought and word finding. Félix notes recent medication changes but cannot identify which changes were made. 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 After arrival to the ED the patient rapidly developed hypotension bradycardia and decreased level of consciousness in the ER of unclear etiology, she had minimal elevation of her PCO2. She was given 2 doses of 0.4 mg of IV naloxone due to the overall change in presentation without significant cognitive improvement. She was then given 5 mg IV glucagon which promptly improve her heart rate and blood pressure in mental status though she did not seem to be at full normal baseline cognitively at that point. Overall infectious etiology seems unlikely however urine and blood cultures as well as broad-spectrum antibiotics, meropenem and Zyvox are initiated. After receiving IV glucagon 5 mg initially she had a prolonged approximately greater than one hour episode of normotension, improved mental status and normal heart rate in the 90s, she began have a slow downtrending once again, 2 mg IV glucagon was given at this time as she had not yet reached for bradycardia or hypotension, subsequently this was unable to reverse her symptoms and she then developed recurrent hypotension with bradycardia, this was treated with 5 mg IV glucagon, subsequently a Norepinephrine drip was initiated. So IV atropine was given at that time for bradycardia after initiation of norepinephrine. Overnight: Events:No acute overnight events. Patient awoke and was confused and conversational intermittently. Today: Patient remains encephalopathic, responds to well to nursing. Continues to moan and reach for her head. No meaningful conversation. Exam Vital Signs Vital Sign - Last Date Time Temp Pulse Resp B/P Pulse Ox O2 Delivery O2 Flow Rate FiO2 10/20/16 00:00 Supplement Oxygen 10/20/16 00:00 37.2 118 25 93/64 100 6.00 Intake and Output 10/19/16 10/19/16 10/20/16 Cumulative From/Thru 15:00 23:00 07:00 10/19/16 10:05 - 10/20/16 06:29 Intake Total 5000 ml 1160 ml 1088 ml 7248 ml Output Total 700 ml 600 ml 2000 ml 3300 ml Balance 4300 ml 560 ml -912 ml 3948 ml Intake IV Total 5000 ml 1160 ml 1088 ml 7248 ml Output Urine Total 700 ml 600 ml 2000 ml 3300 ml Exam General: Confused and encephalopathic. HEENT: Normocephalic, atraumatic. External ears without defect. Pupils equal, round, and reactive to light and pinpoint. Positive corneal reflex bilaterally. Anicteric sclerae, moist conjunctivae. [place] macroglossia present , cannot visualize tonsils, with dry mucosa, active snoring present. Neck: Supple with full range of motion. No jugular venous distension. Could not appreciate bruits due to active snoring. No lymphadenopathy or thyromegaly. Cardiovascular: Bradycardic rate and regular rhythm murmurs are not appreciated as well due to loud glottic noises. Pulmonary: Difficult to auscultation due to loud glottic noises. Hypoactive respiratory effort and no use of accessory muscles. Abdomen: Bowel tones present. Soft, obese, nontender, nondistended. No hepatosplenomegaly or masses appreciated. Extremities: No clubbing, cyanosis, edema, or lymphadenopathy appreciated. Ovaries cool to touch upper and lower bilaterally with mild patches of ecchymosis lower extremities. Pulses posterior tibialis 2+ in the right and 1+ on the left lower extremity. Skin: Skin drying cool upper and lower extremities. Normal turgor, and texture ; no rash, ulcers, or subcutaneous nodules appreciated. Mild patches of ecchymosis lower extremity. Neurological:Confused and encephalopathic. According to notes patient is dependent upon walker for the last 2 years. Psychiatric: Confused and encephalopathic. IVs and Medications Medications Reviewed: Medications were reviewed in detail Lab and Diagnostics Result Diagram: 10/20/16 0500 10/20/16 0500 Assessment & Plan Mrs. Crow Is a 76-year-old lady with past medical history significant for 2 prior episodes of reversible encephalopathy with the past year, COPD, depression , polypharmacy, one-year history of seizure disorder and 2 year story of resting tremor and head noemi declining ambulatory ability, hypothyroid, hypertension, and previous PA without PCI, who presents to the [facility] emergency Department via EMS after being found by caregiver in a confused state asking about her cat, with previous normal cognition one day prior. The patient rapidly developed hypotension bradycardia and decreased level of consciousness in the ER of unclear etiology; minimal elevation of PCO2, 2 doses of 0.4 mg of IV naloxone; 5 mg IV glucagon which promptly improve her heart rate and blood pressure in mental status though she did not seem to be at full normal baseline cognitively at that point. Urine and blood cultures obtained, meropenem , linezolid initiated. After receiving IV glucagon 5 mg initially she had a prolonged approximately greater than one hour episode of normotension, improved mental status and normal heart rate in the 90s, she began have a slow downtrending once again, 2 mg IV glucagon was given at this time as she had not yet reached for bradycardia or hypotension, subsequently this was unable to reverse her symptoms and she then developed recurrent hypotension with bradycardia, this was treated with 5 mg IV glucagon, subsequently a Norepinephrine drip was initiated. So IV atropine was given at that time for bradycardia after initiation of norepinephrine. 1. Encephalopathy, present on admission. Improved. - Differential diagnosis includes polypharmacy, beta parth overdose, seizure disorder, stroke, infectious source, hypothyroid, COPD exacerbation, uremia. - Most likely 2nd to UTI and polypharmacy. - IV glucagon 5 mg given 3 times with resolution only after the first administration. - TSH within normal limits (3.050). - UA negative. Culture positive, awaiting sensitivities. - Toxicology showed positive barbiturates and benzodiazepines, investigate current home medications. - CT head wo as above. No acute abnormalities. - MRI head tomorrow. - Continue Meropenem, d/c linezolid. 2. Acute shock, present on admission. Improved. - Differential includes sepsis versus cardiogenic versus neurogenic. - Off Norepinephrine. - 3 L normal saline given wide open with current rate of 300ml per hour. - Meropenem and linezolid initiated in the ED. - Blood cultures pending 2. - Chest x-ray as above. Stable nodule. 3. Acute bradycardia, present on admission. Improved. - Atropine administered. 4. Acute respiratory acidosis, present on admission. Active and improving. - ABG as above. PH 7.203, PCO2 50.9 - Normal respirations 12, tolerating nasal cannula 99% saturations. 5. Acute kidney injury, present admission. Active. - Baseline creatinine 0.6, currently 2.60. BUN 29. - Continue IV fluids. Chronic Conditions: Chronic Hypertension Chronic Hypothyroidism Depression Migraines Seizure disorder Acetaminophen for mild pain when necessary. Bowel regimen Senna and MiraLAX scheduled and PRN. Zofran when necessary for nausea and vomiting. SubQ heparin held for now. SCDs in place. High-risk medications: ICU: Vent settings: none. ABG: as above. I/Os: Lines: Left and right antecubital peripheral IV (10/19). Left PICC (10/19). Drips: NE Disposition: Likely here for > 2 midnights. Dependent upon mental status. Will be discharged to home or SNF undetermined at this time. Acute or chronic? Pain Evaluation: Adequate Pain Control VTE Mechanical Devices: Intermittant Pneumatic CD Resuscitation Status: DNR/DNI:Do Not Resuscitate/Intubate Attending Statement The patient was seen and examined together with Dr. Hayward on 10/20/2016 and I agree with the history, exam and plan as outlined in the note above. . RAQUEL HAYWARD DO Oct 20, 2016 07:41 David Maradiaga MD Oct 21, 2016 07:36
[2016-10-20] MEDS ORDERED: MeTOProlol XL 25 mg ER24 Tablet PO SCH (08:30)
--- NOTE | 2016-10-20 08:52 | NUR ---
Faxed H&P to Becka Schneider at [facility].
--- NOTE | 2016-10-20 10:13 | DRSVH ---
PROCEDURE: US RENAL SONOGRAM INDICATIONS: 76 year-old woman with acute renal insufficiency. TECHNIQUE: Real-time scanning was performed of the kidneys and bladder, with image documentation. COMPARISON: US, ABDOMEN SONOGRAM, 11/20/2007, 14:12. [facility], CT, ABD/PELVIS W/CON (P NL), 01/30/2014, 11:38. FINDINGS: Kidneys: Kidneys are normal in size. Right kidney measures 9.8 cm long; left kidney measures 1.5 cm long. Right renal cortical thickness is 10.0 cm; left renal cortical thickness is 1.3 cm. There is a 3.0 x 2.7 x 2.7 cm simple appearing cyst in the lateral aspect of the mid to inferior right kidney . Renal cortical echotexture is as well as normal. No hydronephrosis or nephrolithiasis. No suspici ous solid mass lesions. Bladder: Pre-void bladder volume is empty with a Easley catheter in place. Miscellaneous: No free pelvic fluid. IMPRESSION: 1. A simple cyst in the right kidney. 2. Otherwise normal ultrasound appearance of the kidneys. No hydronephrosis. No findings to explain a cute renal insufficiency. Dictated by: Edgar Waldrop M.D. on 10/20/2016 at 10:02 Approved by: Edgar Waldrop M.D. on 10/20/2016 at 10:11
[2016-10-20] MEDS: Levothyroxine 100 mCg/5 mL Inj IV SCH (10:46)
[2016-10-20] MEDS ORDERED: Meropenem Inj 1,000 MG in IV Premix 1 EACH IV SCH (11:05)
--- NOTE | 2016-10-20 11:28 | PCM.PNMED ---
Subjective Date of Service Oct 20, 2016 Subjective remains confused but more responsive to verbal stimuli. unable to provide any meaningful history. now tachycardic and increased BP. UOP considerably well. Exam Vital Signs Vital Sign - Last Date Time Temp Pulse Resp B/P Pulse Ox O2 Delivery O2 Flow Rate FiO2 10/20/16 07:57 Supplement Oxygen 10/20/16 07:55 37.5 118 28 131/61 100 5.00 Intake and Output 10/19/16 10/19/16 10/20/16 Cumulative From/Thru 15:00 23:00 07:00 10/19/16 10:05 - 10/20/16 06:29 Intake Total 5000 ml 1160 ml 1088 ml 7248 ml Output Total 700 ml 600 ml 2000 ml 3300 ml Balance 4300 ml 560 ml -912 ml 3948 ml Intake IV Total 5000 ml 1160 ml 1088 ml 7248 ml Output Urine Total 700 ml 600 ml 2000 ml 3300 ml Exam General: confused, responsive to verbal stimuli, in NAD. Head: Normal Eyes: PERRLA, EOMI, Scleral Anicteric Mouth: Lips, Mucous Membr Moist/[place] Neck: No Thyromegaly Chest & Lungs: Expiratory wheezing, Diminished breath sounds Cardiovascular: Regular Rate/Rhythm, Normal S1, Normal S2, Murmur (systolic ), tachycardic. Abdomen: Non-tender, Non-distended, No hepatosplenomegaly Genitourinary: Dela Cruz Present Extremities: No cyanosis/clubbing/edema bilateral. Lab and Diagnostics Result Diagram: 10/20/16 0500 10/20/16 0500 Assessment & Plan 1. JACKIE - baseline serum creatinine 0.6 - initial serum creatinine 2.6. - She takes lisinopril. Per record, med was started in Jul 2016. - DDx: Prerenal- decrease renal blood flow during hypotensive and bradycardic episodes. Renal- ischemic ATN from prolonger hypotension vs toxic ATN. AIN and GN - less likely Postrenal - ruled out, good urine output after dela cruz cath placed, renal US showed no hydronephrosis. 2. Mixed respiratory acidosis and AG metabolic acidosis - low ETOH, acetaminophen and salicylate level. - worsening hypernatremia and hyperchloremia due to NaCl infusion. - ethylene glycol level pending. 3. Acute encephalopathy, multi factorial. - h/o polypharmacy, seizure, PRES, ? underlying dementia. - extensive w/u performed by primary care team. 4. Hypotension and bradycardia, suspected beta-parth overdose. s/p IV glucagon and atropine. 5. h/o PRES x 2. 6. Seizure disorder. 7. h/o COPD, tobacco abuse. plan: continue supportive treatment, keep MAP > 65 mmHg. d/c NS, IVF bolus can be given PRN to maintain MAP. avoid nephrotoxins, hold lisinopril. VTE Mechanical Devices: Intermittant Pneumatic CD Resuscitation Status: DNR/DNI:Do Not Resuscitate/Intubate Blaine Butler MD Oct 20, 2016 11:28
--- NOTE | 2016-10-20 12:08 | NUR ---
Palliative Care Palliative Care received order from Dr Ortiz 10/20/16 to assist with goals of care. Patient is a 76 year old woman who was admitted 10/19/16 for care of AMS/encephalopathy. Beto Dupont (son) [phone] Stoney Makanda (brother) [phone] Palliative Care to follow. Ashwini De Anda
[2016-10-20] MEDS: Acetaminophen IV 1,000 MG in IV Premix 1 EACH IV PRN ×2 (13:07→18:49)
--- NOTE | 2016-10-20 14:32 | NUR ---
NUTRITION ASSESSMENT Assess: 76 yo F w/ encephalopathy, JACKIE, and acute shock. ST evaluation has been ordered but SUPERVISOR MICROWAVE has been unable to complete. Will re-evaluate when pt is more appropriate. PMHx: Seizures, Reversible encephalopathy, Hypothyroid, HTN, COPD, ACS. LABS: Reviewed. Na 147, Cl 115, CO2 17, Cr 1.51, Ca 8.2 MEDICATIONS: Reviewed. DIET: NPO GI symptoms/stool: No BM recorded Skin integrity: No issues noted; Carlin: 12 ANTHROPOMETRICS: Current Wt: 74 kg BMI: 31.9 kg/i2Fjeeu Wt: 74 kg IBW: 45.5 kgRecent wt changes: Stable ESTIMATED NEEDS: COPD/BMI Calories: 9966-9831 kcal/d (22-25 kcal/kg/d) Protein: 55-80 g/d (1.2-1.8 g/kg/d IBW) Fluids: 5500-0062 ml/d (25-30 ml/kg/d) NUTRITION DIAGNOSIS: 1) Chewing/swallowing difficulty related to AMS as evidenced by need for ST eval and acute encephalopathy. INTERVENTION: 1) Diet per ST recommendations 2) Will monitor for diet advancement and PO intake 3) If unable to advance diet in 1-2 days, recommend nutrition support MONITOR/EVALUATE: Diet adv/bonny, Labs, Wt, Nutrition status, POC. Will follow per moderate nutrition risk guidelines. Addendum: 10/22/16 at [address] Diet advanced per ST to pureed. Pt eating 15-50%. Will continue to follow per moderate nutrition risk guidelines.
--- NOTE | 2016-10-20 15:45 | DRSVH ---
PROCEDURE: X-RAY CHEST ONE VIEW, PORTABLE ([id number]) INDICATIONS: SHORT OF BREATH/CHF TECHNIQUE: One view of the chest was acquired. COMPARISON: [facility], CR, XR CHEST 1VW (PORTABLE), 10/19/2016, 10:27. FINDINGS: Surgical changes and devices: Left PICC present with tip projected the lower SVC Lungs and pleura: No pleural effusions or pneumothorax. Lungs are clear. Mediastinum: Mediastinal contours appear normal. Heart size is normal. Bones and chest wall: No suspicious bony lesions. Overlying soft tissues appear unremarkable. IMPRESSION: No acute cardiopulmonary disease. Dictated by: Abdulaziz SHEA Interpreted: Aruna Wynn MD on 10/20/2016 at 15:43 Transcribed by: KEYONNA on 10/20/2016 at 15:44 Approved by: Aruna Wynn M.D. on 10/20/2016 at 16:48
[2016-10-20] MEDS: Albuterol-Ipratropium 3 mL Inhalation Solution NEB SCH ×2 (16:05→22:05)
--- NOTE | 2016-10-20 16:25 | NUR ---
Hemodynamics/cardiac/neuro/nausea Normotensive, 119/74. ST per ekg monitor tech, rate controlled in the low 100s. Failed ST evaluation, unable to administered scheduled po metoprolol. Mentation improving. Opens eyes to voice. Oriented to self, disoriented to time and place. At times pt will respond with "yes/no" when asked direct questions. Assisting with turns and following simple commands. Headache resolved. Pt c/o nausea, relief noted with PRN zofran.
--- NOTE | 2016-10-20 17:25 | NUR ---
Wound Care Pressure ulcer protocol received. A 76 year old female with a previous diagnosis of posterior reversible encephalopathy syndrome and Parkinson's disease presents to ED via EMS with altered mental status, last known normal yesterday. Caregiver reports that the patient was unable to answer the door for her this morning, and subsequently called EMS. No pressure related skin issues at this time, on a ccu bed with heels floated.
[2016-10-20] MEDS: Meropenem Inj 1,000 MG in 0.9% Sodium Chloride 50 ML IV SCH (20:35)
--- NOTE | 2016-10-20 20:58 | NUR ---
Suicide attempt 2030 Pt awoke and stated she tried to commit suicide. Unable to say when but states she took a bunch of her pills. When asked if she took extra Valium she says yes. When asked she states she didn't want to be a burden to her son. States she has tried to kill herself in the distant past. States she has no intention to hurt herself at this time. Dr Willard notified.
[2016-10-21] VITALS (8 sets, daily range): BP systolic 151–167; BP diastolic 59–71; PULSE 103–114; RESP 18–24; O2SAT 92–100
[2016-10-21] MEDS: Meropenem Inj 1,000 MG in 0.9% Sodium Chloride 50 ML IV SCH ×2 (00:30→08:49)
[2016-10-21] MEDS: Albuterol-Ipratropium 3 mL Inhalation Solution NEB SCH ×4 (02:34→19:52)
[2016-10-21 04:24] LABS: BASOPHILS % (AUTO) 0.2 % (0-3); EOSINOPHILS % (AUTO) 0.7 % (0-5); MONOCYTES % (AUTO) 9.8 % (4-12); Mean Corpuscular Hemoglobin 30.4 pg (27.0-35.0); Mean Corpuscular Volume 100.6 fL (81-100); NEUTROPHILS % (AUTO) 80.2 % (40-74); Platelet Count 290 bil/L (150-400)
--- NOTE | 2016-10-21 05:36 | NUR ---
Confusion, Intermittently confused and restless through the night. Removes leads and O2. Found out of bed once. Bed alarm on. Reorients with persistent reminders. IVF TKO. Easley cath in place with joseph barcenas.
[2016-10-21] MEDS: Acetaminophen IV 1,000 MG in IV Premix 1 EACH IV PRN (07:38)
[2016-10-21 08:28] LABS: Magnesium 2.1 mg/dL (1.6-2.6); Phosphorus 2.6 mg/dL (2.5-4.9)
[2016-10-21] MEDS: MeTOProlol XL 25 mg ER24 Tablet PO SCH (08:30)
[2016-10-21] MEDS: Levothyroxine 100 mCg/5 mL Inj IV SCH (08:49)
--- NOTE | 2016-10-21 09:24 | DRSVH ---
PROCEDURE: X-RAY CHEST ONE VIEW, PORTABLE ([id number]) INDICATIONS: encephalopathy TECHNIQUE: One view of the chest was acquired. COMPARISON: [facility], CR, XR CHEST 1VW (PORTABLE), 10/20/2016, 13:21. FINDINGS: Surgical changes and devices: Stable position of left PICC. Lungs and pleura: No pleural effusions or pneumothorax. Lung volumes are low and medial bibasilar p atchy airspace opacities present. Mediastinum: Mediastinal contours appear normal. Heart size is normal. Bones and chest wall: No suspicious bony lesions. Overlying soft tissues appear unremarkable. IMPRESSION: Bibasilar atelectasis versus aspiration or pneumonia. Correlate clinically. Dictated by: Abdulaziz Naidu RRA Interpreted: Aruna Wynn MD on 10/21/2016 at 9:23 Transcribed by: KEYONNA on 10/21/2016 at 9:24 Approved by: Aruna Wynn M.D. on 10/21/2016 at 16:54
--- NOTE | 2016-10-21 10:58 | NUR ---
Status: Pt downgraded from CCU to PCC status, tele ST prior to being d/c'd. O2 sats 94% on RA, slowly titrated from 4L NC down to RA with sats maintaining. Pt remains intermittently confused, pulling at lines and tubes occasionally, reorients fairly easily. Diet puree/thin liquids per ST. Ambulated in lepe with FWW/1p assist per PT, currently up in chair, Michael alarm in place. Care ongoing.
[2016-10-21] MEDS: Heparin 5,000 Unit/mL Inj SUBQ SCH ×2 (11:04→21:44)
--- NOTE | 2016-10-21 11:06 | NUR ---
Evaluation completed. Please go to "Notes" then click on "Assessments and Notes" (bottom left corner of screen). Then select appropriate discipline tab on top of screen. Addendum: 10/21/16 at 1108 by BAILEE AMAYA Amended: Links added.
--- NOTE | 2016-10-21 11:16 | NUR ---
Social Work: Initial Assessment D: Per EMR review, pt is a 76 year old female admitted for ALOC, Hypotension, JACKIE. Pt is Medicare with [facility] supplement; pt has no ltc insurance or va benefits. PCP is Callum Conn MD. NOK Is Beto Dupont, Son, . Advanced directives completed and on file. Readmit score is moderate, 5/8. CONCRETE CARPENTER met with pt at bedside. Sw role explained and contact information provided. See initial assessment. Pt lives in [address] [facility] [address], alone. Pt has [facility] caregiving hours but cannot recall how many hours. [facility] CM is Becka Schneider ([phone]). [place]er [place] and does not drive. Pt relies on for chores, meal prep and cleaning. During assessment pt struggles with word searching but is able to recall most information. Pt provided verbal consent for CONCRETE CARPENTER to speak with her son and HCS worker. Per PT, pt will likely not skill out for rehab and will likely need to discharge home with HH and caregiving support. t/c to pt's son, Beto. He confirms the aforementioned information. CONCRETE CARPENTER reviewed that pt will likely require additional support during transition home. He states that he is not sure if he will be able to provide extra care for the pt during discharge and is wondering if [facility] caregiving hours can be increased. CONCRETE CARPENTER reviewed PT recommendation for home health- he does not believe the pt has had this in the past and has no preference for HH t/c to Becka Schneider, pt's HCS worker. She states that pt's caregiving hours were recently increase from 40 to 68 hours however she has been struggling to get these hours staffed. She understands pt does not qualify for a skilled rehab under Medicare as her needs are more chcf. She suggested a SNF placement under [facility] for a short term stabilization while pt's cognition and mentation improves. She suggested [facility] and [facility] Jesi Mckeon. CONCRETE CARPENTER left message with pt's son to discuss this option. [facility] to provide referrals. A: Pt who previously lived at home with 40 hours [facility] caregiving. P: Evolving; CONCRETE CARPENTER attempting to place pt at SNF under [facility] pending bed availability for short term stabilization, [facility] Jesi and [facility] are reviewing. CONCRETE CARPENTER to follow up with pt's son about this plan. DANITA Castro Addendum: 10/21/16 at 1136 by AMANUEL ROCHA Amended: Links added.
--- NOTE | 2016-10-21 11:31 | PCM.PNMED ---
Subjective Date of Service Oct 21, 2016 Subjective Confused at times overall LOC improved. NPO, failed swallowing test. She reports being thirsty. Exam Vital Signs Vital Sign - Last Date Time Temp Pulse Resp B/P Pulse Ox O2 Delivery O2 Flow Rate FiO2 10/21/16 09:25 114 24 97 Nasal Cannula 2.00 103 22 10/21/16 05:25 36.9 167/59 Intake and Output 10/20/16 10/20/16 10/21/16 Cumulative From/Thru 14:59 22:59 06:59 10/19/16 10:05 - 10/21/16 06:10 Intake Total 302 ml 368 ml 7918 ml Output Total 1425 ml 900 ml 5625 ml Balance -1123 ml -532 ml 2293 ml Intake IV Total 302 ml 368 ml 7918 ml Output Urine Total 1425 ml 900 ml 5625 ml Exam General: confused at times, AAOX3 at the moment, slow response. Head: Normal Eyes: PERRLA, EOMI, Scleral Anicteric Mouth: Lips, Mucous Membr Moist/[place] Neck: No Thyromegaly Chest & Lungs: CTA, B/L. Cardiovascular: Regular Rate/Rhythm, Normal S1, Normal S2, Murmur (systolic ), tachycardic. Abdomen: Non-tender, Non-distended, No hepatosplenomegaly Genitourinary: Dela Cruz Present Extremities: No cyanosis/clubbing/edema bilateral. Lab and Diagnostics Result Diagram: 10/21/1641410/21/16414 Assessment & Plan 1. JACKIE - baseline serum creatinine 0.6 - initial serum creatinine 2.6. - She takes lisinopril. Per record, med was started in Jul 2016. - resolved. 2. Hypernatremia. 3. Acute encephalopathy, multi factorial. - h/o polypharmacy, seizure, PRES, ? underlying dementia. - extensive w/u performed by primary care team. 4. Hypotension and bradycardia, suspected beta-parth overdose. s/p IV glucagon and atropine. - resolved. 5. h/o PRES x 2. 6. Seizure disorder. 7. h/o COPD, tobacco abuse. plan: start d5w 80 ml/hr. d/c dela cruz cath. repeat BMP in am. VTE Mechanical Devices: Intermittant Pneumatic CD Resuscitation Status: DNR/DNI:Do Not Resuscitate/Intubate Ananthapanyasut,Wanwarat MD Oct 21, 2016 11:31
--- NOTE | 2016-10-21 11:35 | NUR ---
Gave access and faxed facehseet to [facility] and [facility] per INVENTORY ASSOCIATE AND DRIVER
[2016-10-21] MEDS: levoFLOXacin Inj 750 MG in IV Premix 1 EACH IV SCH (11:47)
[2016-10-21] MEDS: Norepineph 8,000 mCg/250 mL NS 8,000 MCG in IV Premix 1 EACH IV SCH (13:31)
--- NOTE | 2016-10-21 13:36 | NUR ---
Transfer to [facility] Pt transferred out of CCU to [facility], report received from CATHRYN Sousa and SN Lorenzo. Pt stable and comfortable, Easley DC'd per orders and ABX resumed. Addendum: 10/21/16 at 1915 by AALIYAH WHITE RN Cardiac: Pt denies CP. No Tele. Resp: Pt denies SOB. SPO2 mid 90s on RA. GI/: Pt denies n/v. Tracee DC'd, pt is not passing urine yet, but is comfortable, Bladder scan: 235ml Neuro: A&Ox1, tremor noted, son reports it is more pronounced today than normal. Ambulated with PT 100 feet. up to the [facility] to void. Pt still confused but pleasant. ruth alarm on.
[2016-10-21] MEDS: Dextrose 5% 1,000 ML IV SCH (14:32)
--- NOTE | 2016-10-21 15:55 | PCM.PNMED ---
Subjective Date of Service Oct 21, 2016 Subjective Mrs. Crow Is a 76-year-old lady with past medical history significant for 2 prior episodes of reversible encephalopathy with the past year, COPD, depression , polypharmacy, one-year history of seizure disorder and 2 year story of resting tremor and head noemi declining ambulatory ability, hypothyroid, hypertension, and previous CT without PCI, who presents to the [facility] emergency Department via EMS after being found by caregiver in a confused state asking about her cat, with previous normal cognition one day prior. Upon arrival patient was following commands and continue her perseverating about her cat and shortly thereafter became obtunded. Patient's son Félix helped provide history along with previous records to complete past medical history. Patient' s son Félix reports 4-6 weeks of increased perseveration, mild decline in memory and train of thought and word finding. Félix notes recent medication changes but cannot identify which changes were made. 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 After arrival to the ED the patient rapidly developed hypotension bradycardia and decreased level of consciousness in the ER of unclear etiology, she had minimal elevation of her PCO2. She was given 2 doses of 0.4 mg of IV naloxone due to the overall change in presentation without significant cognitive improvement. She was then given 5 mg IV glucagon which promptly improve her heart rate and blood pressure in mental status though she did not seem to be at full normal baseline cognitively at that point. Overall infectious etiology seems unlikely however urine and blood cultures as well as broad-spectrum antibiotics, meropenem and Zyvox are initiated. After receiving IV glucagon 5 mg initially she had a prolonged approximately greater than one hour episode of normotension, improved mental status and normal heart rate in the 90s, she began have a slow downtrending once again, 2 mg IV glucagon was given at this time as she had not yet reached for bradycardia or hypotension, subsequently this was unable to reverse her symptoms and she then developed recurrent hypotension with bradycardia, this was treated with 5 mg IV glucagon, subsequently a Norepinephrine drip was initiated. So IV atropine was given at that time for bradycardia after initiation of norepinephrine. Overnight: Events:No acute overnight events. Today: Patient is nearly back to pre admit baseline, however son states she is completely different from 3 months ago. Patient is depressed and tired and mentioned wanting to perish peacefully while holding her son. Her son Félix was a voice of encouragement and reason and she agrees to try and get better. She only request a bed pad so she can just urinate while lying in bed without getting up. Exam Vital Signs Vital Sign - Last Date Time Temp Pulse Resp B/P Pulse Ox O2 Delivery O2 Flow Rate FiO2 10/21/16 15:13 108 24 92 Room Air 108 20 10/21/16 10:00 154/59 2.00 10/21/16 05:25 36.9 Intake and Output 10/20/16 10/20/16 10/21/16 Cumulative From/Thru 15:00 23:00 07:00 10/19/16 10:05 - 10/21/16 06:10 Intake Total 302 ml 368 ml 7918 ml Output Total 1425 ml 900 ml 5625 ml Balance -1123 ml -532 ml 2293 ml Intake IV Total 302 ml 368 ml 7918 ml Output Urine Total 1425 ml 900 ml 5625 ml Exam General: Obese and weak. HEENT: Normocephalic, atraumatic. External ears without defect. Pupils equal, round, and reactive to light and pinpoint. Positive corneal reflex bilaterally. Anicteric sclerae, moist conjunctivae. [place] macroglossia present , cannot visualize tonsils, with dry mucosa, active snoring present. Neck: Supple with full range of motion. No jugular venous distension. Could not appreciate bruits due to active snoring. No lymphadenopathy or thyromegaly. Cardiovascular: Bradycardic rate and regular rhythm murmurs are not appreciated as well due to loud glottic noises. Pulmonary: Difficult to auscultation due to loud glottic noises. Hypoactive respiratory effort and no use of accessory muscles. Abdomen: Bowel tones present. Soft, obese, nontender, nondistended. No hepatosplenomegaly or masses appreciated. Extremities: No clubbing, cyanosis, edema, or lymphadenopathy appreciated. Ovaries cool to touch upper and lower bilaterally with mild patches of ecchymosis lower extremities. Pulses posterior tibialis 2+ in the right and 1+ on the left lower extremity. Skin: Skin drying cool upper and lower extremities. Normal turgor, and texture ; no rash, ulcers, or subcutaneous nodules appreciated. Mild patches of ecchymosis lower extremity. Neurological: Minor pill rolling, resting tremors, head bobbing and cogwheel present. According to notes patient is dependent upon walker for the last 2 years. Psychiatric: A&O x 2. depressed mood with element of despair. IVs and Medications Medications Reviewed: Medications were reviewed in detail Lab and Diagnostics Result Diagram: 10/21/1641410/21/16414 Assessment & Plan Mrs. Crow Is a 76-year-old lady with past medical history significant for 2 prior episodes of reversible encephalopathy with the past year, COPD, depression , polypharmacy, one-year history of seizure disorder and 2 year story of resting tremor and head noemi declining ambulatory ability, hypothyroid, hypertension, and previous CT without PCI, who presents to the [facility] emergency Department via EMS after being found by caregiver in a confused state asking about her cat, with previous normal cognition one day prior. The patient rapidly developed hypotension bradycardia and decreased level of consciousness in the ER of unclear etiology; minimal elevation of PCO2, 2 doses of 0.4 mg of IV naloxone; 5 mg IV glucagon which promptly improve her heart rate and blood pressure in mental status though she did not seem to be at full normal baseline cognitively at that point. Urine and blood cultures obtained, meropenem , linezolid initiated. After receiving IV glucagon 5 mg initially she had a prolonged approximately greater than one hour episode of normotension, improved mental status and normal heart rate in the 90s, she began have a slow downtrending once again, 2 mg IV glucagon was given at this time as she had not yet reached for bradycardia or hypotension, subsequently this was unable to reverse her symptoms and she then developed recurrent hypotension with bradycardia, this was treated with 5 mg IV glucagon, subsequently a Norepinephrine drip was initiated. So IV atropine was given at that time for bradycardia after initiation of norepinephrine. 1. Encephalopathy, present on admission. Improved. - Differential diagnosis includes polypharmacy, beta parth overdose, seizure disorder, stroke, infectious source, hypothyroid, COPD exacerbation, uremia. - Most likely 2nd to UTI and polypharmacy. - IV glucagon 5 mg given 3 times with resolution only after the first administration. - TSH within normal limits (3.050). - UA negative. Culture positive, awaiting sensitivities. - Toxicology showed positive barbiturates and benzodiazepines, investigate current home medications. - CT head wo as above. No acute abnormalities. - D/C meropenem, Start Ciprofloxacin. 2. Acute urinary tract infection, present on admission, active. - D/C meropenem, linezolid, start Ciprofloxacin. - UA / Cx / sensitivities as above. 3. Acute shock, present on admission. Resolved. - Differential includes sepsis versus cardiogenic versus neurogenic. - Off Norepinephrine. - 3 L normal saline given wide open with current rate of 300ml per hour. - Meropenem and linezolid initiated in the ED. - Blood cultures pending 2. - Chest x-ray as above. Stable nodule. 4. Acute bradycardia, present on admission. Improved. - Atropine administered. 5. Acute respiratory acidosis, present on admission. Active and improving. - ABG as above. PH 7.203, PCO2 50.9 - Normal respirations 12, tolerating nasal cannula 99% saturations. 6. Acute kidney injury, present admission. Active and improving. - Baseline creatinine 0.6, currently 2.60. BUN 29. - Continue IV fluids. Chronic Conditions: Chronic Hypertension Chronic Hypothyroidism Depression Migraines Seizure disorder Acetaminophen for mild pain when necessary. Bowel regimen Senna and MiraLAX scheduled and PRN. Zofran when necessary for nausea and vomiting. SubQ heparin held for now. SCDs in place. High-risk medications: Disposition: Likely here for > 2 midnights. Dependent upon mental status. Will be discharged to home or SNF undetermined at this time. Acute or chronic? Pain Evaluation: Adequate Pain Control VTE Mechanical Devices: Intermittant Pneumatic CD Resuscitation Status: DNR/DNI:Do Not Resuscitate/Intubate Attending Statement The patient was seen and examined together with Dr. Hayward on 10/21/2016 and I agree with the history, exam and plan as outlined in the note above. . RAQUEL HAYWARD DO Oct 21, 2016 15:55 David Maradiaga MD Oct 24, 2016 07:58
[2016-10-21] MEDS ORDERED: Ciprofloxacin Inj 400 MG in IV Premix 1 EACH IV SCH (20:30)
[2016-10-22] VITALS (13 sets, daily range): BP systolic 138–175; BP diastolic 66–91; PULSE 95–109; RESP 18–24; O2SAT 93–99
[2016-10-22] MEDS: Dextrose 5% 1,000 ML IV SCH ×3 (02:49→17:24)
[2016-10-22] MEDS: Albuterol-Ipratropium 3 mL Inhalation Solution NEB SCH ×5 (03:25→20:49)
[2016-10-22 05:12] LABS: BASOPHILS % (AUTO) 0.2 % (0-3); EOSINOPHILS % (AUTO) 0.8 % (0-5); MONOCYTES % (AUTO) 14.3 % (4-12); Mean Corpuscular Hemoglobin 30.4 pg (27.0-35.0); NEUTROPHILS % (AUTO) 70.8 % (40-74); Platelet Count 260 bil/L (150-400)
--- NOTE | 2016-10-22 06:31 | NUR ---
Mentation/BP/Activity/Respiratory Pt has been oriented x3 all night, also more conversational this morning. Still pt is forgetful about some things and at times makes odd requests and statements. Pt call light appropriate, has tremors per baseline, seizure precautions and ruth alarm in place for safety. SBP 160s-170s most of night. First SBP in 170s was rechecked once pt given tylenol for 5/10 headache and standing to BSC. Once pain reduced and pt at rest, SBP back down to 160s. MD notified that SBP 170s again this morning, pt denies pain. MD stated to wait on morning metoprolol dose and no further orders given at this time. Pt voiding per BSC using walker, weakness and unsteady gait noted. Pt placed on 3L NC d/t SOB w/ exertion and RA sats 88.
[2016-10-22 08:11] LABS: Levetiracetam (Keppra) 33.4 ug/mL (10.0-40.0)
[2016-10-22] MEDS: Levothyroxine 100 mCg/5 mL Inj IV SCH (08:24)
[2016-10-22] MEDS: MeTOProlol XL 25 mg ER24 Tablet PO SCH (08:25)
[2016-10-22] MEDS: Heparin 5,000 Unit/mL Inj SUBQ SCH ×2 (08:25→20:52)
[2016-10-22] MEDS: levoFLOXacin Inj 750 MG in IV Premix 1 EACH IV SCH (10:51)
--- NOTE | 2016-10-22 11:57 | NUR ---
Palliative Care Order for Palliative Care cancelled today per Dr Ortiz. Ashwini De Anda
[2016-10-22] MEDS: Norepineph 8,000 mCg/250 mL NS 8,000 MCG in IV Premix 1 EACH IV SCH (14:05)
--- NOTE | 2016-10-22 14:08 | PCM.PNMED ---
Subjective Date of Service Oct 22, 2016 Subjective doing better, more awake and alert. Serum creatinine normalized. Exam Vital Signs Vital Sign - Last Date Time Temp Pulse Resp B/P Pulse Ox O2 Delivery O2 Flow Rate FiO2 10/22/16 12:43 100 24 98 Nasal Cannula 3.00 10/22/16 12:00 37.1 168/80 10/22/16 01:05 Intake and Output 10/21/16 10/21/16 10/22/16 Cumulative From/Thru 14:59 22:59 06:59 10/19/16 10:05 - 10/22/16 06:21 Intake Total 574 ml 1210 ml 9702 ml Output Total 635 ml 1350 ml 7610 ml Balance -61 ml -140 ml 2092 ml Intake Oral 300 ml 200 ml 500 ml IV Total 274 ml 1010 ml 9202 ml Output Urine Total 635 ml 1350 ml 7610 ml # Voids 4 4 Exam General: confused at times, AAOX3 at the moment, slow response. Head: Normal Eyes: PERRLA, EOMI, Scleral Anicteric Mouth: Lips, Mucous Membr Moist/[place] Neck: No Thyromegaly Chest & Lungs: CTA, B/L. Cardiovascular: Regular Rate/Rhythm, Normal S1, Normal S2, Murmur (systolic ), tachycardic. Abdomen: Non-tender, Non-distended, No hepatosplenomegaly Genitourinary: [place] Present Extremities: No cyanosis/clubbing/edema bilateral. Lab and Diagnostics Result Diagram: 10/22/16 0500 10/22/16 0500 Assessment & Plan 1. JACKIE - resolved. 2. Hypernatremia. - improving. 3. Acute encephalopathy, multi factorial. - h/o polypharmacy, seizure, PRES, ? underlying dementia. - extensive w/u performed by primary care team. 4. Hypotension and bradycardia, suspected beta-parth overdose. s/p IV glucagon and atropine. - resolved. 5. h/o PRES x 2. 6. Seizure disorder. 7. h/o COPD, tobacco abuse. plan: continue d5w 80 ml/hr for one more day. will sign off, please do not hesitate to call with any question. VTE Mechanical Devices: Intermittant Pneumatic CD Resuscitation Status: DNR/DNI:Do Not Resuscitate/Intubate Blaine Butler MD Oct 22, 2016 14:07
--- NOTE | 2016-10-22 15:26 | NUR ---
Social Work: Continued Discharge Planning D: Pt discussed in am rounds. Pt is anticipated to be ready for discharge over the weekend. [facility]. Pt was working with pt but not expected to skill for rehab. BRIMMER BLOCKER and pt's [facility] CM, Becka Schneider, discussed getting pt to SNF under her [facility] if possible. BRIMMER BLOCKER met with pt at bedside to discuss this option. Pt is resident to going to skilled rehab. Through reflective listening and affirmations, pt is agreeable to referrals to several facilities. SNF Choice List provided. Pt states she has no preference at this time. BRIMMER BLOCKER informed her that her [facility] CM suggested [facility] and [facility]. She agreed on the condition that her son be allowed to tour the facilities. BRIMMER BLOCKER informed pt that he could certainly do so and that he would need to arrange to tour the facilities today so that it would not delay pt's discharge. Pt requested BRIMMER BLOCKER call her son to discuss this. t/c to pt's son, Félix at [phone]. He is requesting BRIMMER BLOCKER email him the addresses and phone numbers for both [facility] and [facility] to [email or web address] and he will go to tour these facilities tonight. BRIMMER BLOCKER provided the information requested to the provided email. t/c from [place] at [facility]. They will need to complete a bedside assessment prior to accepting pt. She will come today to complete this with the pt. A: Pt who lives at home with increasing care needs. P: Guido; BRIMMER BLOCKER to follow up with [facility] and [facility] about admission status and continue to work with pt on resistance to skilled care and barriers to d/c. DANITA Castro
--- NOTE | 2016-10-22 16:03 | NUR ---
Re-evaluation completed. Please go to "Notes" then click on "Assessments and Notes" (bottom left corner of screen). Then select appropriate discipline tab on top of screen.
[2016-10-22] MEDS ORDERED: hydrOXYzine 2 mg/mL 473 mL Syrup PO ONE (16:30)
--- NOTE | 2016-10-22 17:53 | NUR ---
Off unit for MRI
--- NOTE | 2016-10-22 18:31 | PCM.PNMED ---
Subjective Date of Service Oct 22, 2016 Subjective Mrs. Crow Is a 76-year-old lady with past medical history significant for 2 prior episodes of reversible encephalopathy with the past year, COPD, depression , polypharmacy, one-year history of seizure disorder and 2 year story of resting tremor and head noemi declining ambulatory ability, hypothyroid, hypertension, and previous [place] without PCI, who presents to the [facility] emergency Department via EMS after being found by caregiver in a confused state asking about her cat, with previous normal cognition one day prior. Upon arrival patient was following commands and continue her perseverating about her cat and shortly thereafter became obtunded. Patient's son Félix helped provide history along with previous records to complete past medical history. Patient' s son Félix reports 4-6 weeks of increased perseveration, mild decline in memory and train of thought and word finding. Félix notes recent medication changes but cannot identify which changes were made. 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 After arrival to the ED the patient rapidly developed hypotension bradycardia and decreased level of consciousness in the ER of unclear etiology, she had minimal elevation of her PCO2. She was given 2 doses of 0.4 mg of IV naloxone due to the overall change in presentation without significant cognitive improvement. She was then given 5 mg IV glucagon which promptly improve her heart rate and blood pressure in mental status though she did not seem to be at full normal baseline cognitively at that point. Overall infectious etiology seems unlikely however urine and blood cultures as well as broad-spectrum antibiotics, meropenem and Zyvox are initiated. After receiving IV glucagon 5 mg initially she had a prolonged approximately greater than one hour episode of normotension, improved mental status and normal heart rate in the 90s, she began have a slow downtrending once again, 2 mg IV glucagon was given at this time as she had not yet reached for bradycardia or hypotension, subsequently this was unable to reverse her symptoms and she then developed recurrent hypotension with bradycardia, this was treated with 5 mg IV glucagon, subsequently a Norepinephrine drip was initiated. So IV atropine was given at that time for bradycardia after initiation of norepinephrine. Overnight Events: Patient remains anxious and subjectively restless overnight. Today: Patient has worsening resting tremors today. A bit confused at times with rambling stories intermittently. Continues to mention with dignity. Patient expresses depressed page and malaise. She also does not wish to go to a SNF. Denies pain, nausea, vomiting, chest pain, shortness of breath. Exam Vital Signs Vital Sign - Last Date Time Temp Pulse Resp B/P Pulse Ox O2 Delivery O2 Flow Rate FiO2 10/22/16 16:35 101 24 96 Nasal Cannula 3.00 10/22/16 16:00 37.1 155/90 10/22/16 01:05 Intake and Output 10/21/16 10/21/16 10/22/16 Cumulative From/Thru 15:00 23:00 07:00 10/19/16 10:05 - 10/22/16 06:21 Intake Total 574 ml 1210 ml 9702 ml Output Total 635 ml 1350 ml 7610 ml Balance -61 ml -140 ml 2092 ml Intake Oral 300 ml 200 ml 500 ml IV Total 274 ml 1010 ml 9202 ml Output Urine Total 635 ml 1350 ml 7610 ml # Voids 4 4 Exam General: Obese and weak. HEENT: Normocephalic, atraumatic. External ears without defect. Pupils equal, round, and reactive to light and pinpoint. Positive corneal reflex bilaterally. Anicteric sclerae, moist conjunctivae. [place] macroglossia present , cannot visualize tonsils, with dry mucosa, active snoring present. Neck: Supple with full range of motion. No jugular venous distension. Could not appreciate bruits due to active snoring. No lymphadenopathy or thyromegaly. Cardiovascular: Bradycardic rate and regular rhythm murmurs are not appreciated as well due to loud glottic noises. Pulmonary: Difficult to auscultation due to loud glottic noises. Hypoactive respiratory effort and no use of accessory muscles. Abdomen: Bowel tones present. Soft, obese, nontender, nondistended. No hepatosplenomegaly or masses appreciated. Extremities: No clubbing, cyanosis, edema, or lymphadenopathy appreciated. Ovaries cool to touch upper and lower bilaterally with mild patches of ecchymosis lower extremities. Pulses posterior tibialis 2+ in the right and 1+ on the left lower extremity. Skin: Skin drying cool upper and lower extremities. Normal turgor, and texture ; no rash, ulcers, or subcutaneous nodules appreciated. Mild patches of ecchymosis lower extremity. Neurological: Minor pill rolling, resting tremors, head bobbing and cogwheel present. According to notes patient is dependent upon walker for the last 2 years. Psychiatric: A&O x 2. depressed mood with element of despair. IVs and Medications Medications Reviewed: Medications were reviewed in detail Lab and Diagnostics Result Diagram: 10/22/1649910/22/16499 Assessment & Plan Mrs. Crow Is a 76-year-old lady with past medical history significant for 2 prior episodes of reversible encephalopathy with the past year, COPD, depression , polypharmacy, one-year history of seizure disorder and 2 year story of resting tremor and head noemi declining ambulatory ability, hypothyroid, hypertension, and previous IA without PCI, who presents to the [facility] emergency Department via EMS after being found by caregiver in a confused state asking about her cat, with previous normal cognition one day prior. The patient rapidly developed hypotension bradycardia and decreased level of consciousness in the ER of unclear etiology; minimal elevation of PCO2, 2 doses of 0.4 mg of IV naloxone; 5 mg IV glucagon which promptly improve her heart rate and blood pressure in mental status though she did not seem to be at full normal baseline cognitively at that point. Urine and blood cultures obtained, meropenem , linezolid initiated. After receiving IV glucagon 5 mg initially she had a prolonged approximately greater than one hour episode of normotension, improved mental status and normal heart rate in the 90s, she began have a slow downtrending once again, 2 mg IV glucagon was given at this time as she had not yet reached for bradycardia or hypotension, subsequently this was unable to reverse her symptoms and she then developed recurrent hypotension with bradycardia, this was treated with 5 mg IV glucagon, subsequently a Norepinephrine drip was initiated. So IV atropine was given at that time for bradycardia after initiation of norepinephrine. 1. Encephalopathy, Present on admission. Improved. - Differential diagnosis includes polypharmacy, beta parth overdose, seizure disorder, stroke, infectious source, hypothyroid, COPD exacerbation, uremia. - Most likely 2nd to UTI and polypharmacy. - TSH within normal limits (3.050). - UA negative. Culture positive, awaiting sensitivities. - Toxicology showed positive barbiturates and benzodiazepines, investigate current home medications. - CT head wo as above. No acute abnormalities. - Ciprofloxacin. - MRI w/ and w/out brain to assess resolution from previous PRES. - Primidone for essential tremors. 2. Acute urinary tract infection, present on admission, Active. - Ciprofloxacin. - UA / Cx / sensitivities as above. 3. Acute shock, present on admission. Resolved. - Admission vitals - BP - 86/38, and shortly thereafter HR 111. patient was encephalopathic. - Differential includes sepsis versus cardiogenic versus neurogenic. - Off Norepinephrine. - 3 L normal saline given wide open with current rate of 300ml per hour. - Meropenem and linezolid initiated in the ED. - UTI - Enterococcus. - Blood cultures pending 2. - Chest x-ray as above. Stable nodule. 4. Acute bradycardia, present on admission. Improved. - Atropine administered. 5. Acute respiratory acidosis, present on admission. Active and improving. - ABG as above. PH 7.203, PCO2 50.9 - Normal respirations 12, tolerating nasal cannula at 2L - 99% saturations. 6. Acute kidney injury, present admission. Active and improving. - Baseline creatinine 0.6, currently 2.60. BUN 29. - Continue d5w 80 ml/hr for one more day. 7. History of Seizure disorder - Start topiramate 200 BID. - 8. Chronic Hypertension, - Continue home metoprolol 25 succ daily. - Continue home lisinopril 2.5 daily. - Start hydrochlorothiazide 12.5 daily. 9. Anxiety disorder, - Start hydroxazine 10 mg soln tonight. Chronic Conditions: Chronic Hypertension Chronic Hypothyroidism Depression Migraines Acetaminophen for mild pain when necessary. Bowel regimen Senna and MiraLAX scheduled and PRN. Zofran when necessary for nausea and vomiting. SubQ heparin held for now. SCDs in place. High-risk medications: Disposition: Likely here for > 2 midnights. Dependent upon mental status. Will be discharged to home or SNF undetermined at this time. Acute or chronic? Pain Evaluation: Adequate Pain Control VTE Mechanical Devices: Intermittant Pneumatic CD Resuscitation Status: DNR/DNI:Do Not Resuscitate/Intubate Attending Statement The patient was seen and examined together with Dr. Hayward on 10/22/2016 and I agree with the history, exam and plan as outlined in the note above. . RAQUEL HAYWARD DO Oct 22, 2016 18:31 David Maradiaga MD Oct 24, 2016 07:58
--- NOTE | 2016-10-22 19:28 | DRSVH ---
PROCEDURE: MRI BRAIN WITH AND WITHOUT CONTRAST ([id number]) INDICATIONS: hx PRES syndrome, confusion TECHNIQUE: Noncontrast axial T1 spin echo, axial T2 fast spin echo, sagittal and axial FLAIR, coronal T2 fast sp in echo, axial gradient echo, axial diffusion and ADC through the brain. After the administration of contrast, axial and coronal 3D VIBE or T1 spin echo with fat saturation through the brain. COMPARISON: [facility], MR, MR BRAIN WO CON, 08/16/2016, 8:20. FINDINGS: Image quality: Moderate, patient movement decreases detail CSF Spaces: Basal cisterns are patent. No extra-axial fluid collections. Ventricles are normal in size and shape. Brain: No midline shift. No intracranial bleeds or masses. No abnormal intracranial enhancement. The brainstem appears normal. Diffusion-weighted images demonstrate no acute ischemic insults. No c hronic ischemic insults. Normal intravascular flow voids are present. Skull and face: Calvarial marrow is normal in signal. Orbits appear normal. Sinuses: Sinuses and mastoids appear clear. IMPRESSION: No evidence for any acute intracranial abnormality is seen. Specifically no evidence for infarct or abnormal T2 or flair hyperintensity. Dictated by: Mariano Hunt M.D. on 10/22/2016 at 19:19 Approved by: Mariano Hunt M.D. on 10/22/2016 at 19:26
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
[2016-10-23 03:19] VITALS: BP 153/96; PULSE 99; RESP 2; O2SAT 98
[2016-10-23 05:27] LABS: BASOPHILS % (AUTO) 0.2 % (0-3); EOSINOPHILS % (AUTO) 2.4 % (0-5); MONOCYTES % (AUTO) 15.7 % (4-12); Mean Corpuscular Hemoglobin 29.9 pg (27.0-35.0); Mean Corpuscular Volume 92.2 fL (81-100); Platelet Count 273 bil/L (150-400)
--- NOTE | 2016-10-23 06:18 | NUR ---
Restless Pt needed frequent reminding of time of day overnight. Frequently requested to get up OOB and going for the day. reoriented as needed. Pt impulsive to get OOB frequently to commode, needing 1PA, unsteady and shaky. Michael alarm in place and on as well as seizure pads on and bed in low locked position.
[2016-10-23 08:00] VITALS: PULSE 94; RESP 20; O2SAT 98
[2016-10-23 08:03] VITALS: BP 169/89; PULSE 95; RESP 20; O2SAT 98
[2016-10-23] MEDS: Albuterol-Ipratropium 3 mL Inhalation Solution NEB SCH ×2 (08:04→11:52)
[2016-10-23] MEDS: MeTOProlol XL 25 mg ER24 Tablet PO SCH (08:18)
[2016-10-23] MEDS: Levothyroxine 100 mCg/5 mL Inj IV SCH (08:18)
[2016-10-23] MEDS: Heparin 5,000 Unit/mL Inj SUBQ SCH (08:19)
--- NOTE | 2016-10-23 09:00 | NUR ---
[facility]
[2016-10-23 11:50] VITALS: PULSE 80; RESP 18; O2SAT 98
[2016-10-23] MEDS: levoFLOXacin Inj 750 MG in IV Premix 1 EACH IV SCH (11:51)
[2016-10-23 12:14] VITALS: BP 151/85; PULSE 101; RESP 16; O2SAT 97
[2016-10-23] MEDS ORDERED: Albuterol-Ipratropium 3 mL Inhalation Solution NEB SCH (12:30)
--- NOTE | 2016-10-23 12:44 | NUR ---
Social Work: Discharge D: Pt discussed in am rounds. Pt is medically stable for discharge to skilled rehab. Pt has been accepted at [facility] with Dr. Barton to follow. [employer] spoke with Samantha Jose at [facility] who states they can accept the pt today under her Medicare for a short period and will then switch to Medicaid once no longer skillable. [employer] DELIV[employer] CONSULTANT spoke with pt's son about discharge as pt is using [facility]. He states he did not receive [employer] email with [facility] attached however he is willing to send the pt to [facility] today without touring the facility. He states pt is receptive to the idea now that her son has assured it is a short term stay. [employer] DELIV[employer] CONSULTANT awaiting Orders from . A: Pt who will be going to [facility] under Medicare for short rehab stay and then convert to fdc care bed until pt is able to transition home with extra caregiving. P: Pt to discharge to [facility] today; [employer]IV[employer]SULTANT to fax orders, scripts and PASSR once orders are finalized. Lisseth Grace MSW
[2016-10-23] MEDS: Dextrose 5% 1,000 ML IV SCH (12:50)
[2016-10-23] MEDS: Norepineph 8,000 mCg/250 mL NS 8,000 MCG in IV Premix 1 EACH IV SCH (14:05)
--- NOTE | 2016-10-23 14:18 | PCM.DIMED ---
RAQUEL HAYWARD DO 10/23/16 1418: Discharge Instructions Date of Service Oct 23, 2016 Dates of Hospitalization Oct 19, 2016 at 13:05 Discharge Diagnosis Discharge Diagnosis 1. Encephalopathy, Present on admission. Resolved. 2. Acute urinary tract infection, present on admission, Treated and improved. 3. Acute shock, present on admission. Resolved. 4. Acute bradycardia, present on admission. Improved. 5. Acute respiratory acidosis, present on admission. Active and improving. 6. Acute kidney injury, present admission. Active and improving. 7. History of Seizure disorder 8. Chronic Hypertension, 9. Anxiety disorder, Chronic Conditions: Chronic Hypertension Chronic Hypothyroidism Depression Migraines Medication Instructions Start New Medications: - Hydroxyzine 25 mg BID. - Hydrochlorothiazide 12.5 mg daily Continue other medications: - Aspirin 81 mg daily. - Atorvastatin 80 mg daily. - Clopidogrel 75 mg Daily. - Primidone 50 mg HS. - Topiramate 200 Mg BID. - Lisinopril 5 mg - Levothyroxine 100 Mcg daily - Levetiracetam 500 Mg BID - Albuterol - Beclomethasone Dipropionate - Ipratropium / Albuterol - Metoprolol 25 mg Daily - Theophylline Anhydrous ER 300 Mg. Stop Medications: - Diazepam 2 mg PRN. - Trazodone 100 mg HS - Baclofen 10 mg TID. - Citalopram 20 Mg Daily. Diet Heart Healthy, Renal Diet Patient Instructions Follow-up plan Follow up with your primary care physician in 2 weeks time regarding your recent admission to [facility]. - Address recent medication changes. - Help with medication organization. - Follow up with your neurologist, Dr. Cruz, regarding your recent admission to [facility]. Follow-up Provider: Nicolás Cruz MD Follow-up with PCP in: 2 weeks Provider: Callum Conn MD Follow-up in: 2 weeks David Maradiaga MD 10/24/16 0759: Discharge Instructions Attending's Statement The patient was seen and examined together with Dr. Hayward on 10/23/2016 and I agree with the history, exam and plan as outlined in the note above. . RAQUEL HAYWARD DO Oct 23, 2016 14:18 David Maradiaga MD Oct 24, 2016 07:59
[2016-10-23] MEDS ORDERED: HYDR12.5 PO (14:28)
[2016-10-23] MEDS ORDERED: HYDR-656 PO (14:28)
[2016-10-23 14:42] VITALS: PULSE 130
--- NOTE | 2016-10-23 18:27 | NUR ---
Discharge Pt. was transferred onto wheelchair. PICC discontinued per IV therapy. Taken off of oxygen; pt stating that she uses oxygen only at night at home. Own wheelchair taken off of unit. Report given to receiving nurse at [facility] by Janina Beaver RN. Discharge paperwork taken by transport staff. Approx. discharge time was 1627.
--- NOTE | 2016-10-24 08:01 | PCM.DC.MED ---
Discharge Summary Date of Service Oct 23, 2016 Dates of Hospitalization Date of Hospital Admission Oct 19, 2016 at 13:05 Date of Discharge: Oct 23, 2016 Providers: Admitting Physician: Rad Garcia MD Primary Care Physician: Callum Conn MD Attending Physician: Rad Garcia MD Diagnosis at Time of Discharge Diagnosis at Time of Discharge 1. Encephalopathy, Present on admission. Resolved. 2. Acute urinary tract infection, present on admission, Treated and improved. 3. Acute shock, present on admission. Resolved. 4. Acute bradycardia, present on admission. Improved. 5. Acute respiratory acidosis, present on admission. Active and improving. 6. Acute kidney injury, present admission. Active and improving. 7. History of Seizure disorder 8. Chronic Hypertension, 9. Anxiety disorder, Chronic Conditions: Chronic Hypertension Chronic Hypothyroidism Depression Migraines Brief History This is a 76-year-old lady with multiple past medical history including seizure disorder, COPD, previous DE, hypothyroidism, hypertension, migraines, depression , macular degeneration who presented to the hospital due to altered mental status. Patient was recently admitted in July 2016 due to acute encephalopathy secondary to posterior reversible encephalopathy syndrome. Her son is at the bedside reported that she lives alone at her apartment. She has caregiver who comes 3-4 times a week to check on her. This morning, patient was found to be confused and obtunded. She then was brought to the ED by EMS. Upon arrival, she was found to be hypotensive and bradycardia. She received IV Narcan and IV glucagon. 2L NS IV bolus was given. Subsequently, her BP and HR have improved. During my visit, her BP was in 110s systolic with HR of 90. Her son does not know if she overdosed herself unintentionally. He does not know whether she took any NSAIDs. Her mentation has declined over the past 6 weeks. Her initial w/u showed Na 138, K 4.0, Cl 100 CO2 22, BUN 29/Cr 2.6. Her baseline serum cr was 0.6. UA showed oxalic acid crystal. Easley catheter was placed in ER with good UOP. Her last visit at urgent care was on 10/13 due to skin lesion from cat scratch. The wound was cleaned and antibiotics ointment was applied. Echo in Jul 2016: The left ventricle is normal in size. Left ventricular systolic function is normal without focal wall motion abnormalities. The ejection fraction is estimated to be 60-65%. Prior regional wall motion abnormalities have resolved. The right ventricle is normal in size and function. Pulmonary artery pressures cannot be estimated because of the lack of a measurable TR jet velocity. Both atria are normal in size. There is no significant valvular heart disease. The aortic root is normal size. There is no obvious cardiac source of embolus noted on this transthoracic echocardiogram. Follow-up with a [facility] is suggested if cardiac source is still suspected. PMH Posterior reversible encephalopathy syndrome x2, last episode in Jul 2016. COPD HTN Migraine headache Depression Macular degeneration Tobacco abuse Surgical History Cholecystectomy Family History Patient is unable to recall family history of HTN, CVD, Cancer Social History Hx Alcohol Use: Yes Hx Substance Use: No Hx Tobacco Use: Yes (1ppd x 50 PY) Smoking Status: Former Smoker Hospital Course Mrs. Crow Is a 76-year-old lady with past medical history significant for 2 prior episodes of reversible encephalopathy with the past year, COPD, depression , polypharmacy, one-year history of seizure disorder and 2 year story of resting tremor and head noemi declining ambulatory ability, hypothyroid, hypertension, and previous DE without PCI, who presents to the [facility] emergency Department via EMS after being found by caregiver in a confused state asking about her cat, with previous normal cognition one day prior. The patient rapidly developed hypotension bradycardia and decreased level of consciousness in the ER of unclear etiology; minimal elevation of PCO2, 2 doses of 0.4 mg of IV naloxone; 5 mg IV glucagon which promptly improve her heart rate and blood pressure in mental status though she did not seem to be at full normal baseline cognitively at that point. Urine and blood cultures obtained, meropenem , linezolid initiated. After receiving IV glucagon 5 mg initially she had a prolonged approximately greater than one hour episode of normotension, improved mental status and normal heart rate in the 90s, she began have a slow downtrending once again, 2 mg IV glucagon was given at this time as she had not yet reached for bradycardia or hypotension, subsequently this was unable to reverse her symptoms and she then developed recurrent hypotension with bradycardia, this was treated with 5 mg IV glucagon, subsequently a Norepinephrine drip was initiated. So IV atropine was given at that time for bradycardia after initiation of norepinephrine. 1. Encephalopathy, Present on admission. Improved. - Differential diagnosis includes polypharmacy, beta parth overdose, seizure disorder, stroke, infectious source, hypothyroid, COPD exacerbation, uremia. - Most likely 2nd to UTI and polypharmacy. - TSH within normal limits (3.050). - UA negative. Culture positive, awaiting sensitivities. - Toxicology showed positive barbiturates and benzodiazepines, investigate current home medications. - CT head wo as above. No acute abnormalities. - Ciprofloxacin. - MRI w/ and w/out brain to assess resolution from previous PRES. - Primidone for essential tremors. 2. Acute urinary tract infection, present on admission, Active. - Ciprofloxacin. - UA / Cx / sensitivities as above. 3. Acute shock, present on admission. Resolved. - Admission vitals - BP - 86/38, and shortly thereafter HR 111. patient was encephalopathic. - Differential includes sepsis versus cardiogenic versus neurogenic. - Off Norepinephrine. - 3 L normal saline given wide open with current rate of 300ml per hour. - Meropenem and linezolid initiated in the ED. - UTI - Enterococcus. - Blood cultures pending 2. - Chest x-ray as above. Stable nodule. 4. Acute bradycardia, present on admission. Improved. - Atropine administered. 5. Acute respiratory acidosis, present on admission. Active and improving. - ABG as above. PH 7.203, PCO2 50.9 - Normal respirations 12, tolerating nasal cannula at 2L - 99% saturations. 6. Acute kidney injury, present admission. Active and improving. - Baseline creatinine 0.6, currently 2.60. BUN 29. - Continue d5w 80 ml/hr for one more day. 7. History of Seizure disorder - Start topiramate 200 BID. - 8. Chronic Hypertension, - Continue home metoprolol 25 succ daily. - Continue home lisinopril 2.5 daily. - Start hydrochlorothiazide 12.5 daily. 9. Anxiety disorder, - Start hydroxazine 10 mg soln tonight. Chronic Conditions: Chronic Hypertension Chronic Hypothyroidism Depression Migraines Acetaminophen for mild pain when necessary. Bowel regimen Senna and MiraLAX scheduled and PRN. Zofran when necessary for nausea and vomiting. SubQ heparin held for now. SCDs in place. High-risk medications: Disposition: Likely here for > 2 midnights. Dependent upon mental status. Will be discharged to home or SNF undetermined at this time. Acute or chronic? Exam Vital Signs (Last) Date Time Temp Pulse Resp B/P Pulse Ox O2 Delivery O2 Flow Rate FiO2 10/23/16 14:42 130 Nasal Cannula 1.00 10/23/16 12:14 36.3 16 151/85 97 10/22/16 01:05 Test 10/19/16 10:12 10/19/16 10:20 10/19/16 11:45 10/19/16 14:09 Prothrombin Time 10.7sec (8.1-12.5) Prothromb Time International Ratio 1.00ratio Urine Color Straw (YELLOW) Urine Appearance Hazy (CLEAR,HAZY) Urine pH 5.5 (5.0-8.0) Urine Specific [place] 1.010 (1.003-1.035) Urine Protein Negativemg/dL (NEG,TRACE) Urine Glucose (UA) Negativemg/dL (NEGATIVE) Urine Ketones Negativemg/dL (NEGATIVE) Urine Occult Blood Trace (NEGATIVE) Urine Nitrite Negative (NEGATIVE) Urine Bilirubin Negative (NEGATIVE) Urine Urobilinogen Normalmg/dL (NORMAL) Urine Leukocyte Esterase Trace (NEGATIVE) Urine RBC 0-2/hpf (0-2) Urine WBC 0-5/hpf (0-5) Urine Epithelial Cells Occasional/hpf (NONE-MOD) Urine Crystals Oxalic acid crystals (NONE Urine Bacteria Few/hpf (NONE-FEW) Urine Hyaline Casts Occasional/lpf (NONE) Urine Granular Casts None seen (NONE SEEN) Urine Waxy Casts None seen (NONE SEEN) Urine Red Blood Cell Casts None seen (NONE SEEN) Urine White Blood Cell Casts None seen (NONE SEEN) Urine Mucus None seen (None Seen) Urine Trichomonas None seen (NONE SEEN) Urine Yeast None (NONE SEEN) Urinalysis Comment None Urine Culture Reflexed Indicated Urine Opiates Screen Negative Urine Methadone Screen Negative Urine Barbiturates Screen Positive Urine Amphetamines Screen Negative Urine Benzodiazepines Screen Positive Urine Cocaine Metabolite Screen Negative Urine Cannabinoids Screen Negative Ammonia 25ug/dL (18-53) Thyroid Stimulating Hormone (TSH) 3.050uIU/mL (0.450-4.500) Total Creatine Kinase 73U/L (21-215) Salicylates Level 3.1ug/mL (30-250) Acetaminophen Level < 15.0ug/mL Rx (10-25) Levetiracetam (Keppra) Level 33.4ug/mL (10.0-40.0) Ethylene Glycol None detectedmg/dL Alcohol, Quantitative < 10mg/dL (0-10) Test 10/19/16 18:37 10/21/16 04:15 10/21/16 18:00 10/23/16 05:18 Lactic Acid Level 0.5mmol/L (0.4-2.0) Troponin T < 0.010ug/L (0.0-0.011) Phosphorus Level 2.6mg/dL (2.5-4.9) Magnesium Level 2.1mg/dL (1.6-2.6) Procalcitonin 3.87ng/mL (0.00-0.08) Activated Partial Thromboplast Time 32.7sec (22.8-33.0) White Blood Count 8.2th/mm3 (3.8-10.1) Red Blood Count 3.58mil/mm3 (3.90-5.20) Hemoglobin 10.7g/dL (12.0-15.6) Hematocrit 33.0% (35.0-46.0) Mean Corpuscular Volume 92.2fL (81-100) Mean Corpuscular Hemoglobin 29.9pg (27.0-35.0) Mean Corpuscular Hemoglobin Concent 32.4% (32.0-37.0) Red Cell Distribution Width 15.3% (12.3-15.4) Platelet Count 273bil/L (150-400) Neutrophils (%) (Auto) 64.0% (40-74) Lymphocytes (%) (Auto) 17.6% (14-46) Monocytes (%) (Auto) 15.7% (4-12) Eosinophils (%) (Auto) 2.4% (0-5) Basophils (%) (Auto) 0.2% (0-3) Sodium Level 143mEq/L (134-144) Potassium Level 4.0mEq/L (3.5-5.2) Chloride Level 107mEq/L (97-108) Carbon Dioxide Level 26mmol/L (18-29) Blood Urea Nitrogen 6mg/dL (8-27) Creatinine 0.63mg/dL (0.57-1.00) Estimat Glomerular Filtration Rate 132mL/min (>59) Glucose Level 127mg/dL (60-99) Calcium Level 8.7mg/dL (8.5-10.1) Total Bilirubin 0.2mg/dL (0.0-1.2) Aspartate Amino Transf (AST/SGOT) 16U/L (0-50) Alanine Aminotransferase (ALT/SGPT) 11U/L (0-32) Alkaline Phosphatase 82U/L (25-165) Total Protein 5.3g/dL (6.4-8.4) Albumin 3.4g/dL (3.4-5.0) Discharge Medications Discharge Medications Aspirin (Aspirin) 81 Mg Tablet 81 MG PO DAILY (Reported) Atorvastatin Calcium (Atorvastatin Calcium) 80 Mg Tablet 80 MG PO HS (Reported) Beclomethasone Dipropionate (Qvar) 8.7 Gm Aer.w.adap 2 PUFF INH BID (Reported) Calcium Carbonate/Vitamin D3 (Calcium 600 + Vit D Tablet) 1 Each Tablet 1 EACH PO DAILY (Reported) Clopidogrel (Clopidogrel) 75 Mg Tablet 75 MG PO DAILY Prescribed by: NOVA PANDEY, Cyanocobalamin (Vitamin B12) 500 Mcg Tablet 1,000 MCG SL DAILY (Reported) Hydrochlorothiazide (Hydrochlorothiazide) 12.5 Mg Capsule 12.5 MG PO DAILY Prescribed by: RAQUEL HAYWARD, Ipratropium/Albuterol Sulfate (Iprat-Albut 0.5-3(2.5) mg/3 mL Inhalant Soln) 3 Ml Ampul.neb 3 ML INH BID (Reported) Levetiracetam (Levetiracetam) 500 Mg Tablet 500 MG PO BID (Reported) Levothyroxine (Levothyroxine) 100 Mcg Tablet 100 MCG PO DAILY (Reported) Lisinopril (Lisinopril) 5 Mg Tablet 5 MG PO DAILY (Reported) Metoprolol Succinate ER (Metoprolol Succinate ER) 25 Mg Tab.er.24h 25 MG PO DAILY (Reported) Multivit-Min/FA/Lutein/Zeaxant (Icaps Mv Tablet) 1 Each Tablet. 1 EACH PO BID (Reported) Primidone (Primidone) 50 Mg Tablet 50 MG PO HS (Reported) Theophylline Anhydrous ER (Theophylline Anhydrous ER) 300 Mg Tab.er.12h 300 MG PO BID (Reported) Topiramate (Topamax) 100 Mg Tablet 200 MG PO BID (Reported) As needed Albuterol HFA (Proair HFA) 8.5 Gm Hfa.aer.ad 2 PUFFS IH Q4-6H PRN PRN For Wheezing (Reported) Ondansetron (Ondansetron) 8 Mg Tablet 8 MG PO TID PRN PRN For Nausea (Reported) Polyethylene Glycol 3350 (Miralax) 17 Gm Powd.pack 8.5 GM PO DAILY PRN PRN For Constipation (Reported) hydrOXYzine Hcl (HydrOXYzine Hcl) 25 Mg Tablet 25 MG PO TID PRN PRN For Anxiety or Agitation Prescribed by: RAQUEL HAYWARD DO Additional med instructions Start New Medications: - Hydroxyzine 25 mg BID. - Hydrochlorothiazide 12.5 mg daily Continue other medications: - Aspirin 81 mg daily. - Atorvastatin 80 mg daily. - Clopidogrel 75 mg Daily. - Primidone 50 mg HS. - Topiramate 200 Mg BID. - Lisinopril 5 mg - Levothyroxine 100 Mcg daily - Levetiracetam 500 Mg BID - Albuterol - Beclomethasone Dipropionate - Ipratropium / Albuterol - Metoprolol 25 mg Daily - Theophylline Anhydrous ER 300 Mg. Stop Medications: - Diazepam 2 mg PRN. - Trazodone 100 mg HS - Baclofen 10 mg TID. - Citalopram 20 Mg Daily. Followup Plan Follow-up plan Follow up with your primary care physician in 2 weeks time regarding your recent admission to [facility]. - Address recent medication changes. - Help with medication organization. - Follow up with your neurologist, Dr. Cruz, regarding your recent admission to [facility]. Discharge Diet: Heart Healthy, Renal Diet Follow-up Provider: Nicolás Cruz MD Follow-up with PCP in: 2 weeks Provider: Callum Conn MD Follow-up in: 2 weeks Time spent Greater than 30 minutes was spent in preparation of discharge with greater than 50% of that time dedicated to patient counseling and coordination of care. . Attending Statement The patient was seen and examined together with Dr. Hayward on 10/23/2016 and I agree with the history, exam and plan as outlined in the note above. . copies to: Callum Conn MD, COREY P DO Oct 23, 2016 16:59 David Maradiaga MD Oct 24, 2016 08:01
== END 2016-10-23 16:29 | DRG 871 ==
LOC: SED 09:56 → CCU 13:05 → PCC 10-21 09:36
PROVIDERS: ADMIT Hospitalist; ATTEND Hospitalist
PROC: 4A033R1 Measurement of Arterial Saturation, Peripheral, Percutaneous Approach (ICD-10-PCS; principal; 2016-10-19)
DX: A41.9 Sepsis, unspecified organism (principal); G93.40 Encephalopathy, unspecified; N17.0 Acute kidney failure with tubular necrosis; R57.1 Hypovolemic shock; R57.8 Other shock; N39.0 Urinary tract infection, site not specified; E87.4 Mixed disorder of acid-base balance; E87.0 Hyperosmolality and hypernatremia; R00.1 Bradycardia, unspecified; G20 Parkinson's disease; G40.909 Epilepsy, unspecified, not intractable, without status epilepticus; E03.9 Hypothyroidism, unspecified; I10 Essential (primary) hypertension; F32.9 Major depressive disorder, single episode, unspecified; I25.2 Old myocardial infarction; Z87.891 Personal history of nicotine dependence; Z66 Do not resuscitate